=== PATIENT | male | born 1955 | race Two or more races ===

== ENCOUNTER 2018-09-12 20:32 | Emergency (ER) | payer OTHER ==
[~2018-09-12] VITALS: Ht 170.2 cm; Wt 83.0 kg
[2018-09-12 20:42] VITALS: BP 161/98
[2018-09-12 22:00] LABS: Basophils # (auto) 0 uL; Basophils % (auto) 0.3 % (0.0-2.0); Eosinophils # (auto) 0.1 uL; Eosinophils % (auto) 0.5 % (0.0-7.0); Hematocrit 45.2 % (41.0-53.0); Hemoglobin 15.4 g/dL (13.5-17.5); Lymphocytes # (auto) 2.6 uL; Lymphocytes % (auto) 17.1 % (10.0-50.0); Mean Corpuscular Hemoglobin 30.9 pg (28.0-32.0); Mean Corpuscular Hgb Conc. 34.1 g/dL (32.0-36.0); Mean Corpuscular Volume 90.5 fL (80.0-100.0); Monocytes # (auto) 1.2 uL; Monocytes % (auto) 8.1 % (0.0-12.0); Neutrophils # (auto) 11.1 uL; Platelet Count (auto) 360 10^3/uL (140-450); Red Cell Distribution Width 14.2 % (11.8-14.3)
[2018-09-12 22:16] LABS: Partial Thromboplastin Time 32.4 sec (23.78-33.04); Prothrombin Time 10.7 sec (9.27-12.13)
[2018-09-12 22:17] LABS: Chloride 101 mmol/L (98-107); Potassium 3.6 mmol/L (3.5-5.1); Sodium 138 mmol/L (136-145)
[2018-09-12 22:23] LABS: Alanine Aminotransferase 65 U/L (16-61); Albumin 4.1 g/dL (3.4-5.0); Anion Gap 12 (5-15); Aspartate Aminotransferase 50 U/L (15-37); BUN/Creatinine Ratio 6.8; Blood Urea Nitrogen 10 mg/dL (7-18); Calcium 9.7 mg/dL (8.5-10.1); Carbon Dioxide 25 mmol/L (21-32); GFR African American 63 mL/min; GFR Non-African American 52 mL/min; Glucose 162 mg/dL (74-106); Magnesium 2.1 mg/dL (1.6-2.6)
[2018-09-12 22:28] LABS: Alkaline Phosphatase 118 U/L (45-117); Bilirubin, Total 0.5 mg/dL (0.2-1.0)
== END 2018-09-13 02:30 | disposition left against medical advice (07) ==
LOC: ER 20:35
DX: R07.9 Chest pain, unspecified (principal); Z53.21 Procedure and treatment not carried out due to patient leaving prior to being seen by health care provider
CPT/HCPCS: 36415; 71046; 80053; 83735; 83880; 84443; 84484; 85025; 85610; 85730; 93005

== ENCOUNTER → 2018-09-24 | Outpatient (CLI) | payer OTHER | END | disposition home or self-care (01) | LOC: Rad HDHVI 14:58 | PROVIDERS: ATTEND Internal Medicine Cardiovascular Disease | DX: R42 Dizziness and giddiness (principal) | CPT/HCPCS: 93306 ==

== ENCOUNTER → 2018-09-29 | Outpatient (CLI) | payer OTHER ==
[~2018-09-29] VITALS: Ht 170.2 cm; Wt 83.5 kg
== END | disposition home or self-care (01) ==
LOC: Rad HDHVI 07:34
PROVIDERS: ATTEND Internal Medicine Cardiovascular Disease
DX: I25.10 Atherosclerotic heart disease of native coronary artery without angina pectoris (principal)
CPT/HCPCS: 78452; 93017; 96374; A9500

== ENCOUNTER → 2019-01-31 | Outpatient (CLI) | payer MEDICARE, OTHER ==
[~2019-01-31] MED LIST: ASPI-404 PO; ESOM40CA39 PO; TICA1TAB PO; TICA90TA PO
[2019-01-31 09:45] VITALS: BP 132/78
[2019-01-31 09:56] VITALS: BP 127/75
--- NOTE | 2019-01-31 09:56 | NUR ---
PRE-OP FOR LEFT HEART CATH FOR 02/03/19 Pre-Op Discharge Summary: See e-MAR for any medications given for this visit. Pre-op orders received and carried out per MD of EKG, LABS and chest xrays. Patient given a copy of EKG with instructions to go to [facility] out patient for further follow up care.
[2019-01-31 12:07] LABS: Basophils # (auto) 0.1 uL; Basophils % (auto) 0.7 % (0.0-2.0); Eosinophils # (auto) 0.2 uL; Hemoglobin 14.5 g/dL (13.5-17.5); Lymphocytes # (auto) 2.4 uL; Lymphocytes % (auto) 27.2 % (10.0-50.0); Mean Corpuscular Hgb Conc. 33.8 g/dL (32.0-36.0); Mean Corpuscular Volume 91.8 fL (80.0-100.0); Monocytes # (auto) 0.8 uL; Monocytes % (auto) 9.5 % (0.0-12.0); Neutrophils # (auto) 5.4 uL; Neutrophils % (auto) 60.6 % (37.0-80.0); Nucleated Red Blood Cells % 0.1 %; Platelet Count (auto) 309 10^3/uL (140-450); Red Blood Cells 4.69 10^6/uL (4.5-5.90); Red Cell Distribution Width 13.9 % (11.8-14.3); White Blood Cell 8.9 10^3/uL (4.4-10.8)
[2019-01-31 12:35] LABS: INR 0.94 (0.9-1.15); Partial Thromboplastin Time 31.7 sec (23.64-32.05)
[2019-01-31 13:43] LABS: Calcium 9.6 mg/dL (8.5-10.1); Potassium 4.3 mmol/L (3.5-5.1)
[2019-01-31 13:48] LABS: BUN/Creatinine Ratio 14.3
== END | disposition home or self-care (01) ==
LOC: Rad HDHVI 09:17
PROVIDERS: ATTEND Internal Medicine Cardiovascular Disease
DX: Z01.812 Encounter for preprocedural laboratory examination (principal); I70.0 Atherosclerosis of aorta; D64.9 Anemia, unspecified; R79.1 Abnormal coagulation profile; I10 Essential (primary) hypertension; I25.10 Atherosclerotic heart disease of native coronary artery without angina pectoris; R42 Dizziness and giddiness
CPT/HCPCS: 36415; 71046; 80048; 85025; 85610; 85730; 93005; G0463

== ENCOUNTER → 2019-04-26 | Outpatient (CLI) | payer MEDICARE, OTHER ==
[~2019-04-26] MED LIST changes: -TICA90TA PO
== END | disposition home or self-care (01) ==
LOC: Rad HDHVI 09:08
PROVIDERS: ATTEND Internal Medicine Cardiovascular Disease
DX: I25.118 Atherosclerotic heart disease of native coronary artery with other forms of angina pectoris (principal); R42 Dizziness and giddiness; I34.0 Nonrheumatic mitral (valve) insufficiency; I51.7 Cardiomegaly
CPT/HCPCS: 93306

== ENCOUNTER → 2019-06-20 | Outpatient (CLI) | payer MEDICARE, OTHER | END | disposition home or self-care (01) | LOC: Rad HDHVI 09:57 | PROVIDERS: ATTEND Internal Medicine Cardiovascular Disease | DX: I73.9 Peripheral vascular disease, unspecified (principal) | CPT/HCPCS: 93925; 93926 ==

== ENCOUNTER → 2019-06-22 | Outpatient (CLI) | payer MEDICARE, OTHER ==
[~2019-06-22] VITALS: Ht 170.2 cm; Wt 83.9 kg
== END | disposition home or self-care (01) ==
LOC: Rad HDHVI 08:57
PROVIDERS: ATTEND Internal Medicine Cardiovascular Disease
DX: R06.02 Shortness of breath (principal); I25.2 Old myocardial infarction; R07.9 Chest pain, unspecified; E78.00 Pure hypercholesterolemia, unspecified; I10 Essential (primary) hypertension; Z95.5 Presence of coronary angioplasty implant and graft
CPT/HCPCS: 78452; 93017; 96374; A9500

== ENCOUNTER → 2019-07-06 | Outpatient (CLI) | payer MEDICARE, OTHER | END | disposition home or self-care (01) | LOC: Rad HDHVI 10:48 | PROVIDERS: ATTEND Internal Medicine Cardiovascular Disease | DX: M51.27 Other intervertebral disc displacement, lumbosacral region (principal); M48.07 Spinal stenosis, lumbosacral region; M25.78 Osteophyte, vertebrae; M89.48 Other hypertrophic osteoarthropathy, other site | CPT/HCPCS: 72131 ==

== ENCOUNTER → 2019-07-08 | Outpatient (CLI) | payer MEDICARE, OTHER | END | disposition home or self-care (01) | LOC: Rad HDHVI 09:51 | PROVIDERS: ATTEND Internal Medicine Cardiovascular Disease | DX: I51.7 Cardiomegaly (principal); R42 Dizziness and giddiness; I25.10 Atherosclerotic heart disease of native coronary artery without angina pectoris | CPT/HCPCS: 93306 ==

== ENCOUNTER → 2019-08-22 | Outpatient (CLI) | payer MEDICARE, OTHER | END | disposition home or self-care (01) | LOC: LAB 11:12 | PROVIDERS: ATTEND Internal Medicine Cardiovascular Disease | DX: R94.4 Abnormal results of kidney function studies (principal) | CPT/HCPCS: 36415; 82565 ==

== ENCOUNTER → 2019-08-24 | Outpatient (CLI) | payer MEDICARE, OTHER ==
[~2019-08-24] MED LIST changes: +IOHEXOL 350 MG/ML 100ML IJ ONE
--- NOTE | 2019-08-24 10:30 | NUR ---
CHF PT AT THE [facility] FOR CTA OF THE HEAD AND NECK. PT C/O HEADACHES FOR 6 MONTHS AND PRESSURE. A/O X 4 0 DISTRESS VSS NO PAIN AT THIS TIME
--- NOTE | 2019-08-24 10:40 | NUR ---
IV insertion IV access obtained, via clean sterile technique by inserting 20 gauge catheter at LAC after 1 attempt(s). IV secured properly. No trauma to site. Patient tolerated procedure well.
--- NOTE | 2019-08-24 11:05 | NUR ---
IV removal IV DC'd with sterile technique, catheter fully intact. Pressure dressing applied to site. Patient tolerated procedure well. Discharged with aftercare instructions per MD. NOTE:
[2019-08-24 11:07] VITALS: BP 136/79
--- NOTE | 2019-08-24 11:07 | NUR ---
Discharge Instructions See e-MAR for any mediations given with this visit. Patient education given on disease process. Patient verbalized understanding. Previous labs reviewed. Patient discharged in stable condition with after care instructions and follow up appointment. PT TOLERATED PROCEDURE WELL BP STABLE
[2019-08-24 12:23] VITALS: BP 122/75
== END | disposition home or self-care (01) ==
LOC: Rad HDHVI 10:20
PROVIDERS: ATTEND Internal Medicine Cardiovascular Disease
DX: I65.23 Occlusion and stenosis of bilateral carotid arteries (principal)
CPT/HCPCS: 70496; G0463; Q9967

== ENCOUNTER → 2020-02-17 | Outpatient (CLI) | payer MEDICARE, OTHER ==
[~2020-02-17] MED LIST changes: -ASPI-404 PO; +ASPI-543 PO; +ATOR10TA52 PO; +CETI5TAB20 PO; +FLUT50SP31; -IOHEXOL 350 MG/ML 100ML IJ ONE; +METF-929 PO; +METO25TA36 PO
== END | disposition home or self-care (01) ==
LOC: Rad HDHVI 13:05
PROVIDERS: ATTEND Internal Medicine Cardiovascular Disease
DX: I10 Essential (primary) hypertension (principal)

== ENCOUNTER → 2020-03-12 | Outpatient (CLI) | payer MEDICARE, OTHER ==
[~2020-03-12] MED LIST changes: -ATOR10TA52 PO; -CETI5TAB20 PO; -FLUT50SP31; -METF-929 PO; -METO25TA36 PO
[2020-03-12 11:03] LABS: Basophils # (auto) 0.1 10 ^3/uL (0-0.2); Basophils % (auto) 0.8 % (0.0-2.0); Eosinophils # (auto) 0.3 10 ^3/uL (0-0.8); Eosinophils % (auto) 3.5 % (0.0-7.0); Hematocrit 41.2 % (41.0-53.0); Hemoglobin 14.3 g/dL (13.5-17.5); Lymphocytes # (auto) 2.6 10 ^3/uL (0.4-5.4); Lymphocytes % (auto) 27.6 % (10.0-50.0); Mean Corpuscular Hemoglobin 30.7 pg (28.0-32.0); Mean Corpuscular Hgb Conc. 34.7 g/dL (32.0-36.0); Mean Corpuscular Volume 88.4 fL (80.0-100.0); Monocytes # (auto) 0.8 10 ^3/uL (0-1.3); Monocytes % (auto) 8.5 % (0.0-12.0); Neutrophils # (auto) 5.6 10 ^3/uL (1.6-8.6); Neutrophils % (auto) 59.6 % (37.0-80.0); Platelet Count (auto) 316 10^3/uL (140-450); Red Blood Cells 4.66 10^6/uL (4.5-5.90); Red Cell Distribution Width 13.9 % (11.8-14.3); White Blood Cell 9.4 10^3/uL (4.4-10.8)
[2020-03-12 11:29] LABS: Urine Blood Negative /uL (Negative); Urine Specific Gravity 1.012 (1.001-1.035)
[2020-03-12 12:04] LABS: Chloride 105 mmol/L (98-107); Potassium 3.9 mmol/L (3.5-5.1); Sodium 136 mmol/L (136-145)
[2020-03-12 12:23] LABS: Alanine Aminotransferase 66 U/L (16-61); Albumin 3.5 g/dL (3.4-5.0); Alkaline Phosphatase 119 U/L (45-117); Anion Gap 8 (5-15); Aspartate Aminotransferase 36 U/L (15-37); BUN/Creatinine Ratio 10.1; Bilirubin, Direct 0.1 mg/dL (0-0.2); Bilirubin, Total 0.5 mg/dL (0.2-1.0); Blood Urea Nitrogen 11 mg/dL (7-18); Calcium 9.4 mg/dL (8.5-10.1); Carbon Dioxide 23 mmol/L (21-32); Cholesterol 269 mg/dL (< 200); GFR African American 87 mL/min; GFR Non-African American 72 mL/min; Glucose 186 mg/dL (74-106); HDL Cholesterol 31 mg/dL (40-59); Total Protein 8.1 g/dL (6.4-8.2); Triglycerides 439 mg/dL (< 150)
== END | disposition home or self-care (01) ==
LOC: LAB 10:38
PROVIDERS: ATTEND Internal Medicine Cardiovascular Disease
DX: C61 Malignant neoplasm of prostate (principal); E29.1 Testicular hypofunction; N39.0 Urinary tract infection, site not specified; D51.9 Vitamin B12 deficiency anemia, unspecified; K90.9 Intestinal malabsorption, unspecified; E03.9 Hypothyroidism, unspecified; Z00.00 Encounter for general adult medical examination without abnormal findings; Z79.899 Other long term (current) drug therapy
CPT/HCPCS: 36415; 80048; 80061; 80076; 81003; 82306; 83036; 84153; 84403; 84443; 85025

== ENCOUNTER → 2020-04-06 | Outpatient (CLI) | payer MEDICARE, OTHER ==
[~2020-04-06] MED LIST changes: +ATOR10TA52 PO; +CETI5TAB20 PO; +FLUT50SP31; +METF-929 PO; +METO25TA36 PO
[2020-04-06 09:15] VITALS: BP 127/80
--- NOTE | 2020-04-06 09:15 | NUR ---
PT ARRIVED TO CHF CLINIC PT ARRIVED TO CHF CLINIC FOR PRE-OP. PT ALERT AND AWAKE WITH EVEN AND UNLABORED RESPIRATIONS. PT IS ON ROOM AIR WITH NO S/S OF DISTRESS/SOB OR PAIN. WILL CARRY OUT MD ORDERS.
[2020-04-06 09:28] VITALS: BP 132/72
--- NOTE | 2020-04-06 09:28 | NUR ---
Pre-Op Discharge Summary: See e-MAR for any medications given for this visit. Pre-op orders received and carried out per MD of EKG, LABS and chest xrays. Patient given a copy of EKG with instructions to go to [facility] out patient for further follow up care. NOTES EKG PERFORMED BY ARCADIO KLINE, RESULTS REVIEWED AND DISCUSSED WITH PATIENT BY TAMIR BAE
[2020-04-06 11:56] LABS: Basophils # (auto) 0.1 10 ^3/uL (0-0.2); Basophils % (auto) 0.5 % (0.0-2.0); Eosinophils # (auto) 0.2 10 ^3/uL (0-0.8); Eosinophils % (auto) 2.1 % (0.0-7.0); Hematocrit 39.4 % (41.0-53.0); Hemoglobin 13.5 g/dL (13.5-17.5); Lymphocytes # (auto) 3.2 10 ^3/uL (0.4-5.4); Lymphocytes % (auto) 32.5 % (10.0-50.0); Mean Corpuscular Hemoglobin 30.8 pg (28.0-32.0); Mean Corpuscular Hgb Conc. 34.2 g/dL (32.0-36.0); Monocytes # (auto) 0.9 10 ^3/uL (0-1.3); Monocytes % (auto) 9.6 % (0.0-12.0); Neutrophils # (auto) 5.4 10 ^3/uL (1.6-8.6); Neutrophils % (auto) 55.3 % (37.0-80.0); Nucleated Red Blood Cells % 0.1 %; Platelet Count (auto) 348 10^3/uL (140-450); Red Blood Cells 4.38 10^6/uL (4.5-5.90); Red Cell Distribution Width 14.1 % (11.8-14.3); White Blood Cell 9.8 10^3/uL (4.4-10.8)
[2020-04-06 11:58] LABS: Potassium 3.7 mmol/L (3.5-5.1)
[2020-04-06 12:00] LABS: INR 1.03 (0.9-1.15); Partial Thromboplastin Time 34.6 sec (23.0-31.2)
[2020-04-06 12:08] LABS: Albumin 3.8 g/dL (3.4-5.0); Bilirubin, Total 0.4 mg/dL (0.2-1.0); Calcium 9.6 mg/dL (8.5-10.1); Total Protein 8.2 g/dL (6.4-8.2)
== END | disposition home or self-care (01) ==
LOC: Rad HDHVI 09:09
PROVIDERS: ATTEND Internal Medicine Cardiovascular Disease
DX: Z01.812 Encounter for preprocedural laboratory examination (principal); J98.11 Atelectasis; I70.0 Atherosclerosis of aorta; I10 Essential (primary) hypertension; E11.9 Type 2 diabetes mellitus without complications; R06.02 Shortness of breath; I73.9 Peripheral vascular disease, unspecified
CPT/HCPCS: 36415; 71046; 80053; 85025; 85610; 85730; 93005; G0463

== ENCOUNTER 2020-04-12 07:04 | Day surgery (SDC) | payer MEDICARE, OTHER ==
[~2020-04-12] VITALS: Ht 170.2 cm; Wt 82.1 kg
[2020-04-12] MEDS ORDERED: IOHEXOL 350 MG/ML 100ML IJ ONE ×2 (08:44→09:12)
[2020-04-12] MEDS ORDERED: LIDOCAINE 2%HCL (LOCAL ANESTH.) INJ 20ML MDV ONE (08:44)
[2020-04-12] MEDS ORDERED: ANGIOMAX 250 MG VIAL IV ONE (09:08)
[2020-04-12] MEDS ORDERED: fentaNYL CITRATE 100 MCG/2 ML VL ONE (09:08)
[2020-04-12] MEDS ORDERED: SODIUM CHL 0.9% 50 ML ONE (09:09)
[2020-04-12] MEDS ORDERED: MIDAZOLAM HCL 1MG/1ML-2 ML VIAL ONE (09:09)
[2020-04-12] MEDS ORDERED: ASPirin 81 mg TAB ONE (09:34)
[2020-04-12] MEDS ORDERED: TICAGRELOR 90 MG TAB ONE (09:34)
[2020-04-12] MEDS ORDERED: ACETAMINOPHEN 500 MG TAB PO PRN (10:00)
[2020-04-12] MEDS ORDERED: HYDROcodone-ACET 5/325MG TAB PO PRN (10:00)
[2020-04-12] MEDS ORDERED: ONDANSETRON HCL 4 MG/2 ML VIAL IV PRN (10:00)
== END 2020-04-12 12:16 | disposition home or self-care (01) ==
LOC: CATH 07:04
PROVIDERS: ATTEND Internal Medicine Cardiovascular Disease
DX: I70.211 Atherosclerosis of native arteries of extremities with intermittent claudication, right leg (principal); I11.9 Hypertensive heart disease without heart failure; I25.10 Atherosclerotic heart disease of native coronary artery without angina pectoris; E11.40 Type 2 diabetes mellitus with diabetic neuropathy, unspecified; H35.00 Unspecified background retinopathy; E11.319 Type 2 diabetes mellitus with unspecified diabetic retinopathy without macular edema; E11.8 Type 2 diabetes mellitus with unspecified complications; E78.00 Pure hypercholesterolemia, unspecified; Z88.0 Allergy status to penicillin; Z68.28 Body mass index [BMI] 28.0-28.9, adult; Z95.5 Presence of coronary angioplasty implant and graft; Z79.899 Other long term (current) drug therapy; Z20.828 Contact with and (suspected) exposure to other viral communicable diseases; Z98.890 Other specified postprocedural states
CPT/HCPCS: 37224; 75716; C1725; C1760; C1769; C1887; C1894; J0583; J1644; J2250; J3010; Q9967; U0003; 99152

== ENCOUNTER 2020-11-01 08:37 | Inpatient (IN) | payer MEDICARE, OTHER ==
[~2020-11-01] VITALS: Ht 170.2 cm; Wt 80.5 kg
[2020-11-01 09:30] LABS: Basophils # (auto) 0.1 10 ^3/uL (0-0.2); Basophils % (auto) 0.7 % (0.0-2.0); Eosinophils # (auto) 0 10 ^3/uL (0-0.8); Eosinophils % (auto) 0.1 % (0.0-7.0); Hematocrit 34.8 % (41.0-53.0); Hemoglobin 11.8 g/dL (13.5-17.5); Lymphocytes # (auto) 1.5 10 ^3/uL (0.4-5.4); Lymphocytes % (auto) 9.2 % (10.0-50.0); Mean Corpuscular Hemoglobin 31.4 pg (28.0-32.0); Mean Corpuscular Hgb Conc. 33.8 g/dL (32.0-36.0); Mean Corpuscular Volume 92.9 fL (80.0-100.0); Monocytes # (auto) 1.9 10 ^3/uL (0-1.3); Neutrophils # (auto) 12.7 10 ^3/uL (1.6-8.6); Platelet Count (auto) 261 10^3/uL (140-450); Red Blood Cells 3.75 10^6/uL (4.5-5.90); Red Cell Distribution Width 14.3 % (11.8-14.3); White Blood Cell 16.3 10^3/uL (4.4-10.8)
[2020-11-01 09:54] LABS: Potassium 3.6 mmol/L (3.5-5.1)
[2020-11-01 10:05] LABS: Albumin 3.5 g/dL (3.4-5.0); BUN/Creatinine Ratio 20.6; Bilirubin, Total 0.7 mg/dL (0.2-1.0); Calcium 8.7 mg/dL (8.5-10.1); Total Protein 7.5 g/dL (6.4-8.2)
[2020-11-01] MEDS ORDERED: cefTRIAXone 1GM/50ML D5W 50 ML IV ONE (10:15)
[2020-11-01] MEDS ORDERED: AZITHROMYCIN 500MG/ 250ML 250 ML IV ONE (10:15)
[2020-11-01] MEDS ORDERED: FUROSEMIDE 40 MG/4 ML VIAL IV ONE (10:30)
[2020-11-01] MEDS ORDERED: ASPirin 81 mg TAB PO ONE (10:30)
[2020-11-01] MEDS ORDERED: ENOXAPARIN SOD 80 MG/0.8ML SYRINGE SC ONE (10:30)
[2020-11-01] MEDS ORDERED: CLOPIDOGREL BISULFATE 75 MG TAB PO ONE (10:45)
[2020-11-01 11:33] LABS: INR 1.09 (0.9-1.15)
[2020-11-01 11:33] LABS: CRP High Sensitivity 10.2 mg/dL (< 0.3)
[2020-11-01] MEDS ORDERED: LIDOCAINE 2%HCL (LOCAL ANESTH.) INJ 20ML MDV ONE (12:32)
[2020-11-01] MEDS ORDERED: MIDAZOLAM HCL 1MG/1ML-2 ML VIAL ONE (12:32)
[2020-11-01] MEDS ORDERED: ANGIOMAX 250 MG VIAL IV ONE (12:32)
[2020-11-01] MEDS ORDERED: fentaNYL CITRATE 100 MCG/2 ML VL ONE (12:32)
[2020-11-01] MEDS ORDERED: IOHEXOL 350 MG/ML 100ML IJ ONE (12:56)
[2020-11-01] MEDS ORDERED: NITROGLYCERIN 0.4 MG SL TAB SL PRN (13:45)
[2020-11-01] MEDS ORDERED: ACETAMINOPHEN 500 MG TAB PO PRN (13:45)
[2020-11-01] MEDS ORDERED: MORPHINE SULF INJ 2 MG/ML SYRINGE 1ML IV PRN (13:45)
[2020-11-01] MEDS ORDERED: ONDANSETRON HCL 4 MG/2 ML VIAL IV PRN (13:45)
[2020-11-01] MEDS: HYDROcodone-ACET 5/325MG TAB PO PRN ×2 (14:31→19:48)
[2020-11-01] MEDS ORDERED: DEXTROSE (50%) 50ML SYRG IV PRN (14:45)
[2020-11-01 17:00] VITALS: BP 93/59
[2020-11-01] MEDS: InsuLIN REG 1unit/0.01ml Soln (100units/ml) SC SCH ×2 (17:00→22:00)
[2020-11-01] MEDS: ACCU-CHEK COMFORT CURVE STRIP VI SCH ×2 (18:02→22:21)
[2020-11-01] MEDS ORDERED: ICOS1CAP OR (18:12)
[2020-11-01 22:00] VITALS: BP 105/60
[2020-11-01] MEDS: FLUTICASONE PROP NASAL SPR 0.05 % (50MCG) 16GM SCH (22:00)
[2020-11-01] MEDS: ATORVASTATIN 20 MG TAB PO SCH (22:21)
[2020-11-01] MEDS: ENOXAPARIN SOD 80 MG/0.8ML SYRINGE SC SCH (22:21)
[2020-11-02] MEDS: HYDROcodone-ACET 5/325MG TAB PO PRN ×6 (01:30→23:04)
[2020-11-02 05:00] VITALS: BP 103/62
[2020-11-02] MEDS: ACCU-CHEK COMFORT CURVE STRIP VI SCH ×4 (06:31→21:32)
[2020-11-02] MEDS: InsuLIN REG 1unit/0.01ml Soln (100units/ml) SC SCH ×4 (06:31→21:31)
[2020-11-02 09:00] VITALS: BP 92/64
[2020-11-02] MEDS: PANTOPRAZOLE 40 MG TAB PO SCH (09:11)
[2020-11-02] MEDS: ASPirin-EC 81 mg tab PO SCH (09:11)
[2020-11-02] MEDS: METOPROLOL SUCCINATE XL 50 MG TAB PO SCH (09:12)
[2020-11-02] MEDS: ENOXAPARIN SOD 80 MG/0.8ML SYRINGE SC SCH ×2 (09:12→21:32)
[2020-11-02] MEDS: FLUTICASONE PROP NASAL SPR 0.05 % (50MCG) 16GM SCH ×2 (10:00→21:31)
[2020-11-02] MEDS: LORATADINE 10 MG TAB PO SCH (11:35)
[2020-11-02 13:00] VITALS: BP 98/64
[2020-11-02 17:00] VITALS: BP 96/60
[2020-11-02] MEDS: MAGNESIUM SULFATE 1GM/100ML 100 ML IV SCH ×4 (18:39→22:52)
[2020-11-02 20:29] LABS: BUN/Creatinine Ratio 15.5; Calcium 8.4 mg/dL (8.5-10.1); Magnesium 2.1 mg/dL (1.6-2.6); Potassium 3.6 mmol/L (3.5-5.1)
[2020-11-02] MEDS: ATORVASTATIN 20 MG TAB PO SCH (21:32)
[2020-11-02 22:00] VITALS: BP 108/66
[2020-11-03] MEDS: HYDROcodone-ACET 5/325MG TAB PO PRN ×3 (03:27→22:03)
[2020-11-03 05:00] VITALS: BP 102/59
[2020-11-03] MEDS: InsuLIN REG 1unit/0.01ml Soln (100units/ml) SC SCH ×4 (06:25→22:00)
[2020-11-03] MEDS: ACCU-CHEK COMFORT CURVE STRIP VI SCH ×4 (06:26→22:03)
[2020-11-03] MEDS: FLUTICASONE PROP NASAL SPR 0.05 % (50MCG) 16GM SCH ×2 (08:13→22:00)
[2020-11-03] MEDS: PANTOPRAZOLE 40 MG TAB PO SCH (08:14)
[2020-11-03] MEDS: ASPirin-EC 81 mg tab PO SCH (08:14)
[2020-11-03] MEDS: LORATADINE 10 MG TAB PO SCH (08:14)
[2020-11-03] MEDS: METOPROLOL SUCCINATE XL 50 MG TAB PO SCH (08:15)
[2020-11-03] MEDS: ENOXAPARIN SOD 80 MG/0.8ML SYRINGE SC SCH ×2 (08:16→22:03)
[2020-11-03 09:00] VITALS: BP 135/68
[2020-11-03] MEDS ORDERED: LACTULOSE 20Gm/30ML SOLN PO PRN (09:15)
[2020-11-03 13:00] VITALS: BP 111/72
[2020-11-03 16:40] VITALS: BP 105/64
[2020-11-03 22:00] VITALS: BP 104/65
[2020-11-03] MEDS: ATORVASTATIN 20 MG TAB PO SCH (22:02)
[2020-11-04] MEDS: HYDROcodone-ACET 5/325MG TAB PO PRN ×4 (04:04→21:13)
[2020-11-04 05:00] VITALS: BP 104/66
[2020-11-04] MEDS: InsuLIN REG 1unit/0.01ml Soln (100units/ml) SC SCH ×4 (06:35→22:00)
[2020-11-04] MEDS: ACCU-CHEK COMFORT CURVE STRIP VI SCH ×4 (06:35→22:19)
[2020-11-04] MEDS: METOPROLOL SUCCINATE XL 50 MG TAB PO SCH (08:49)
[2020-11-04] MEDS: ASPirin-EC 81 mg tab PO SCH (08:49)
[2020-11-04] MEDS: LORATADINE 10 MG TAB PO SCH (08:49)
[2020-11-04] MEDS: PANTOPRAZOLE 40 MG TAB PO SCH (08:49)
[2020-11-04] MEDS: ENOXAPARIN SOD 80 MG/0.8ML SYRINGE SC SCH ×2 (08:50→22:19)
[2020-11-04 09:00] VITALS: BP 103/97
[2020-11-04] MEDS: FLUTICASONE PROP NASAL SPR 0.05 % (50MCG) 16GM SCH ×2 (10:00→22:00)
[2020-11-04 13:00] VITALS: BP 106/69
[2020-11-04 16:53] VITALS: BP 119/72
[2020-11-04 22:00] VITALS: BP 112/66
[2020-11-04] MEDS: ATORVASTATIN 20 MG TAB PO SCH (22:19)
[2020-11-05] MEDS: HYDROcodone-ACET 5/325MG TAB PO PRN ×4 (01:48→19:40)
[2020-11-05 05:00] VITALS: BP 105/66
[2020-11-05] MEDS: ACCU-CHEK COMFORT CURVE STRIP VI SCH ×4 (06:13→22:11)
[2020-11-05] MEDS: InsuLIN REG 1unit/0.01ml Soln (100units/ml) SC SCH ×4 (06:13→22:00)
[2020-11-05] MEDS: PANTOPRAZOLE 40 MG TAB PO SCH (08:00)
[2020-11-05] MEDS: ASPirin-EC 81 mg tab PO SCH (08:00)
[2020-11-05] MEDS: LORATADINE 10 MG TAB PO SCH (08:00)
[2020-11-05] MEDS: METOPROLOL SUCCINATE XL 50 MG TAB PO SCH (08:03)
[2020-11-05] MEDS: ENOXAPARIN SOD 80 MG/0.8ML SYRINGE SC SCH ×2 (08:04→22:11)
[2020-11-05 09:00] VITALS: BP 126/73
[2020-11-05] MEDS: FLUTICASONE PROP NASAL SPR 0.05 % (50MCG) 16GM SCH ×2 (11:11→22:10)
[2020-11-05 13:00] VITALS: BP 116/68
[2020-11-05 17:00] VITALS: BP 108/62
[2020-11-05 22:00] VITALS: BP 113/65
[2020-11-05] MEDS: ATORVASTATIN 20 MG TAB PO SCH (22:10)
[2020-11-05 23:51] VITALS: BP 113/65
[2020-11-06] MEDS: HYDROcodone-ACET 5/325MG TAB PO PRN (00:21)
== END 2020-11-06 03:10 | disposition short-term general hospital (02) | DRG 280 ==
LOC: ER 08:37 → EDSEX 08:37 → EDUNIT# 08:37 → EDBD 08:37 → TELE 13:41 → TELE-WESTW 16:59
PROVIDERS: ADMIT Internal Medicine Cardiovascular Disease; ATTEND Internal Medicine Cardiovascular Disease
PROC: B2111ZZ Fluoroscopy of Multiple Coronary Arteries using Low Osmolar Contrast (ICD-10-PCS; principal; 2020-11-01)
PROC: 4A023N7 Measurement of Cardiac Sampling and Pressure, Left Heart, Percutaneous Approach (ICD-10-PCS; 2020-11-01)
PROC: B3151ZZ Fluoroscopy of Bilateral Common Carotid Arteries using Low Osmolar Contrast (ICD-10-PCS; 2020-11-01)
PROC: B2151ZZ Fluoroscopy of Left Heart using Low Osmolar Contrast (ICD-10-PCS; 2020-11-01)
PROC: B31C1ZZ Fluoroscopy of Bilateral External Carotid Arteries using Low Osmolar Contrast (ICD-10-PCS; 2020-11-01)
PROC: B3181ZZ Fluoroscopy of Bilateral Internal Carotid Arteries using Low Osmolar Contrast (ICD-10-PCS; 2020-11-01)
DX: I21.4 Non-ST elevation (NSTEMI) myocardial infarction (principal); I50.23 Acute on chronic systolic (congestive) heart failure; I11.0 Hypertensive heart disease with heart failure; Z95.1 Presence of aortocoronary bypass graft; I25.10 Atherosclerotic heart disease of native coronary artery without angina pectoris; E78.5 Hyperlipidemia, unspecified; I25.5 Ischemic cardiomyopathy; F17.210 Nicotine dependence, cigarettes, uncomplicated; E11.40 Type 2 diabetes mellitus with diabetic neuropathy, unspecified; Z20.822 Contact with and (suspected) exposure to COVID-19; I25.2 Old myocardial infarction; Z79.02 Long term (current) use of antithrombotics/antiplatelets; Z82.49 Family history of ischemic heart disease and other diseases of the circulatory system; Z98.61 Coronary angioplasty status; Z88.8 Allergy status to other drugs, medicaments and biological substances
CPT/HCPCS: 36415; 71045; 80048; 80053; 82728; 82962; 83615; 83735; 83880; 84484; 85025; 85610; 86141; 87426; 93005; 96365; 96372; 96375; 99152; 99291; G0378; J0696; J1815; J2250

== ENCOUNTER → 2020-11-26 | Outpatient (CLI) | payer MEDICARE, OTHER ==
[~2020-11-26] MED LIST changes: +ICOS1CAP OR
== END | disposition home or self-care (01) ==
LOC: Rad HDHVI 14:04
PROVIDERS: ATTEND Internal Medicine Cardiovascular Disease
DX: R06.02 Shortness of breath (principal); R42 Dizziness and giddiness
CPT/HCPCS: 93306

== ENCOUNTER → 2021-04-15 | Outpatient (CLI) | payer MEDICARE, OTHER ==
[~2021-04-15] MED LIST changes: -CETI5TAB20 PO; +CETI5TAB6 PO
[2021-04-15 15:46] LABS: Urine Blood Negative /uL (Negative); Urine Specific Gravity 1.026 (1.001-1.035)
[2021-04-15 15:49] LABS: Basophils # (auto) 0 10 ^3/uL (0-0.2); Basophils % (auto) 0.5 % (0.0-2.0); Eosinophils # (auto) 0.2 10 ^3/uL (0-0.8); Eosinophils % (auto) 2.9 % (0.0-7.0); Hematocrit 35.5 % (41.0-53.0); Lymphocytes # (auto) 2.4 10 ^3/uL (0.4-5.4); Lymphocytes % (auto) 27.8 % (10.0-50.0); Mean Corpuscular Hemoglobin 30.1 pg (28.0-32.0); Mean Corpuscular Hgb Conc. 33.8 g/dL (32.0-36.0); Monocytes # (auto) 0.8 10 ^3/uL (0-1.3); Monocytes % (auto) 9.3 % (0.0-12.0); Neutrophils % (auto) 59.5 % (37.0-80.0); Nucleated Red Blood Cells % 0.1 %; Red Blood Cells 3.99 10^6/uL (4.5-5.90); Red Cell Distribution Width 14.6 % (11.8-14.3); White Blood Cell 8.5 10^3/uL (4.4-10.8)
[2021-04-15 15:55] LABS: Albumin 3.6 g/dL (3.4-5.0); Calcium 9.2 mg/dL (8.5-10.1); Potassium 4.2 mmol/L (3.5-5.1)
[2021-04-15 15:58] LABS: BUN/Creatinine Ratio 15.7; Bilirubin, Total 0.4 mg/dL (0.2-1.0); INR 1.07 (0.9-1.15); Partial Thromboplastin Time 32.2 sec (23.6-33.0); Total Protein 7.9 g/dL (6.4-8.2)
== END | disposition home or self-care (01) ==
LOC: LAB 13:24
PROVIDERS: ATTEND Internal Medicine Cardiovascular Disease
DX: Z01.812 Encounter for preprocedural laboratory examination (principal)
CPT/HCPCS: 36415; 80053; 81003; 85025; 85610; 85730

== ENCOUNTER → 2021-08-26 | Outpatient (CLI) | payer MEDICARE, OTHER ==
[2021-08-26 15:52] LABS: Basophils # (auto) 0.1 10 ^3/uL (0-0.2); Basophils % (auto) 1.7 % (0.0-2.0); Eosinophils # (auto) 0.2 10 ^3/uL (0-0.8); Eosinophils % (auto) 2.2 % (0.0-7.0); Hematocrit 35.2 % (41.0-53.0); Hemoglobin 12.3 g/dL (13.5-17.5); Lymphocytes # (auto) 2.2 10 ^3/uL (0.4-5.4); Lymphocytes % (auto) 29.3 % (10.0-50.0); Mean Corpuscular Hemoglobin 30.5 pg (28.0-32.0); Mean Corpuscular Volume 87.3 fL (80.0-100.0); Monocytes # (auto) 0.7 10 ^3/uL (0-1.3); Neutrophils # (auto) 4.3 10 ^3/uL (1.6-8.6); Neutrophils % (auto) 57.8 % (37.0-80.0); Nucleated Red Blood Cells % 0.1 %; Red Blood Cells 4.03 10^6/uL (4.5-5.90); Red Cell Distribution Width 14.5 % (11.8-14.3); White Blood Cell 7.5 10^3/uL (4.4-10.8)
[2021-08-26 15:53] LABS: Urine Blood TRACE /uL (Negative); Urine Specific Gravity 1.023 (1.001-1.035)
[2021-08-26 15:57] LABS: Alanine Aminotransferase 27 U/L (16-61); Albumin 3.7 g/dL (3.4-5.0); Anion Gap 5 (5-15); Aspartate Aminotransferase 17 U/L (15-37); Blood Urea Nitrogen 19 mg/dL (7-18); Carbon Dioxide 28 mmol/L (21-32); Chloride 105 mmol/L (98-107); GFR African American 62 mL/min; GFR Non-African American 51 mL/min; Glucose 145 mg/dL (74-106); Potassium 4.7 mmol/L (3.5-5.1); Sodium 138 mmol/L (136-145)
[2021-08-26 16:01] LABS: Alkaline Phosphatase 54 U/L (45-117); Bilirubin, Total 0.3 mg/dL (0.2-1.0); Cholesterol 240 mg/dL (< 200); HDL Cholesterol 32 mg/dL (40-59); Triglycerides 418 mg/dL (< 150)
[2021-08-26 16:13] LABS: Free T4 (Free Thyroxine) 1.01 ng/dL (0.89-1.76)
[2021-08-26 16:14] LABS: Prostate Specific Antigen 0.3 ng/mL (0.0-4.0)
== END | disposition home or self-care (01) ==
LOC: LAB 13:42
PROVIDERS: ATTEND Internal Medicine Cardiovascular Disease
DX: I10 Essential (primary) hypertension (principal); D51.3 Other dietary vitamin B12 deficiency anemia; E11.9 Type 2 diabetes mellitus without complications; D64.9 Anemia, unspecified; E55.9 Vitamin D deficiency, unspecified; R00.2 Palpitations; R53.1 Weakness; R30.0 Dysuria; C61 Malignant neoplasm of prostate
CPT/HCPCS: 36415; 80053; 80061; 81003; 82306; 82607; 83036; 84153; 84403; 84439; 84443; 85025; 87086

== ENCOUNTER 2021-12-01 12:18 | Emergency (ER) | payer MEDICARE, OTHER | END 2021-12-01 12:24 | disposition left against medical advice (07) | LOC: ER 12:18 | DX: S61.219A Laceration without foreign body of unspecified finger without damage to nail, initial encounter (principal); Z53.21 Procedure and treatment not carried out due to patient leaving prior to being seen by health care provider; X58.XXXA Exposure to other specified factors, initial encounter; Y93.9 Activity, unspecified; Y92.9 Unspecified place or not applicable; Y99.9 Unspecified external cause status ==

== ENCOUNTER → 2022-03-20 | Outpatient (CLI) | payer MEDICARE, OTHER | END | disposition home or self-care (01) | LOC: Rad HDHVI 13:04 | PROVIDERS: ATTEND Internal Medicine Cardiovascular Disease | DX: I34.0 Nonrheumatic mitral (valve) insufficiency (principal); R00.2 Palpitations; R42 Dizziness and giddiness | CPT/HCPCS: 93306 ==

== ENCOUNTER → 2022-03-25 | Outpatient (CLI) | payer MEDICARE, OTHER ==
[~2022-03-25] VITALS: Ht 170.2 cm; Wt 88.5 kg
== END | disposition home or self-care (01) ==
LOC: Rad HDHVI 12:57
PROVIDERS: ATTEND Internal Medicine Cardiovascular Disease
DX: I12.9 Hypertensive chronic kidney disease with stage 1 through stage 4 chronic kidney disease, or unspecified chronic kidney disease (principal); E11.22 Type 2 diabetes mellitus with diabetic chronic kidney disease; N18.2 Chronic kidney disease, stage 2 (mild); E78.5 Hyperlipidemia, unspecified; E11.9 Type 2 diabetes mellitus without complications; I25.2 Old myocardial infarction; I25.10 Atherosclerotic heart disease of native coronary artery without angina pectoris; E11.40 Type 2 diabetes mellitus with diabetic neuropathy, unspecified; E11.21 Type 2 diabetes mellitus with diabetic nephropathy; E11.59 Type 2 diabetes mellitus with other circulatory complications; R42 Dizziness and giddiness; R06.02 Shortness of breath; Z82.49 Family history of ischemic heart disease and other diseases of the circulatory system; Z95.0 Presence of cardiac pacemaker; Z95.2 Presence of prosthetic heart valve
CPT/HCPCS: 78452; 93017; 96374; A9500

== ENCOUNTER → 2022-04-14 | Outpatient (CLI) | payer MEDICARE, OTHER ==
[2022-04-14 11:54] LABS: Calcium 9.4 mg/dL (8.5-10.1); Potassium 4.3 mmol/L (3.5-5.1)
== END | disposition home or self-care (01) ==
LOC: LAB 10:54
PROVIDERS: ATTEND Internal Medicine Cardiovascular Disease
DX: E11.40 Type 2 diabetes mellitus with diabetic neuropathy, unspecified (principal)
CPT/HCPCS: 36415; 80048; 83036

== ENCOUNTER 2022-10-27 08:13 | Inpatient (IN) | payer MEDICARE, OTHER ==
[2022-10-23 13:41] LABS: Basophils # (auto) 0.1 10 ^3/uL (0-0.2); Basophils % (auto) 0.8 % (0.0-2.0); Eosinophils # (auto) 0.2 10 ^3/uL (0-0.8); Eosinophils % (auto) 2.5 % (0.0-7.0); Hematocrit 36.1 % (41.0-53.0); Hemoglobin 11.9 g/dL (13.5-17.5); Lymphocytes # (auto) 2.3 10 ^3/uL (0.4-5.4); Lymphocytes % (auto) 36.8 % (10.0-50.0); Mean Corpuscular Hemoglobin 29.1 pg (28.0-32.0); Mean Corpuscular Hgb Conc. 33.1 g/dL (32.0-36.0); Monocytes # (auto) 0.6 10 ^3/uL (0-1.3); Monocytes % (auto) 9.1 % (0.0-12.0); Neutrophils # (auto) 3.2 10 ^3/uL (1.6-8.6); Neutrophils % (auto) 50.8 % (37.0-80.0); Nucleated Red Blood Cells % 0.1 %; Red Cell Distribution Width 14.2 % (11.8-14.3); White Blood Cell 6.4 10^3/uL (4.4-10.8)
[2022-10-23 13:42] LABS: Urine Bacteria NONE SEEN /hpf (None Seen); Urine Blood Negative /uL (Negative); Urine Specific Gravity 1.017 (1.001-1.035); Urine WBC 13 /hpf (0 - 3)
[2022-10-23 13:56] LABS: Partial Thromboplastin Time 34.4 sec (24.6-33.4)
[2022-10-23 14:20] LABS: Albumin 3.7 g/dL (3.4-5.0); Calcium 9.5 mg/dL (8.5-10.1); Potassium 4.4 mmol/L (3.5-5.1)
[2022-10-23 14:23] LABS: BUN/Creatinine Ratio 15.3 (10.0-20.0); Bilirubin, Total 0.2 mg/dL (0.2-1.0); Total Protein 7.9 g/dL (6.4-8.2)
[2022-10-27] VITALS (7 sets, daily range): BP systolic 64–109; BP diastolic 39–64
[~2022-10-27] VITALS: Ht 170.2 cm; Wt 96.3 kg
[~2022-10-27 08:13] MED LIST changes: +CHOL500014 PO; +CLOP75TA28 PO; +DIVA1TAB38 PO; +DIVA500T2 PO; +HYDR-4072 PO; +SACU1TAB PO; -TICA1TAB PO; +TURMPOW XX
[2022-10-27] MEDS ORDERED: ceFAZolin 1GM/50ML 100 ML IV ONE (08:26)
[2022-10-27] MEDS ORDERED: CELECOXIB 100 MG CAP PO ONE (08:30)
[2022-10-27] MEDS ORDERED: PREGABALIN CAPSULE 75 MG CAP PO ONE (08:30)
[2022-10-27] MEDS ORDERED: ACETAMINOPHEN IV 1000 MG/100ML (10MG/ML) IV ONE (08:30)
[2022-10-27] MEDS ORDERED: MORPHINE SULF PF 5 MG/10 ML VIAL ONE (09:17)
[2022-10-27] MEDS ORDERED: fentaNYL CITRATE 100 MCG/2 ML VL ONE (09:17)
[2022-10-27] MEDS ORDERED: MIDAZOLAM HCL 2MG/2ML 2ml VIAL (1mg/ml) ONE ×2 (09:18→10:51)
[2022-10-27] MEDS ORDERED: PROPOFOL 10 MG/ML 20 ML IV ONE ×2 (09:18→12:11)
[2022-10-27] MEDS ORDERED: SODIUM CHLORIDE LOCK 10 ML ONE (09:18)
[2022-10-27] MEDS ORDERED: DexAMETHasone SOD PHOS 10MG/1ML VIAL INJ ONE (09:18)
[2022-10-27] MEDS ORDERED: ONDANSETRON HCL 4 MG/2 ML VIAL ONE (09:18)
[2022-10-27] MEDS ORDERED: VANCOMYCIN HCL 1000 MG VL ONE (09:48)
[2022-10-27] MEDS ORDERED: BUPIVACAINE W/ EPINEPH 0.25% INJ 50ML MDV ONE (09:58)
[2022-10-27] MEDS ORDERED: KETOROLAC TROMETH 30 MG/ML 1ML VIAL ONE (10:01)
[2022-10-27] MEDS ORDERED: TETRACAINE 1% INJ 2 ML VIAL IJ ONE (10:14)
[2022-10-27] MEDS ORDERED: ACCU-CHEK COMFORT CURVE STRIP VI ONE (10:15)
[2022-10-27] MEDS ORDERED: HYDROmorphone HCL 2 MG/ML VL/or syr IV PRN ×3 (10:15→12:45)
[2022-10-27] MEDS ORDERED: METOCLOPRAMIDE HCL 5MG/ml INJ 2ml VIAL IV PRN (10:15)
[2022-10-27] MEDS ORDERED: MORPHINE SULFATE INJ 2 MG/ml SYRG IV PRN ×2 (10:15→12:45)
[2022-10-27] MEDS: TRANEXAMIC ACID 20 ML ONE ×2 (10:50→11:00)
[2022-10-27] MEDS ORDERED: diphenhdrAMINE HCL 50 MG/1 ML VL IV PRN (12:30)
[2022-10-27] MEDS ORDERED: NALOXONE HCL 0.4 MG/ML VIAL IV PRN (12:30)
[2022-10-27] MEDS ORDERED: NITROGLYCERIN 0.4 MG SL TAB SL PRN (12:45)
[2022-10-27] MEDS ORDERED: BISACODYL 5 MG EC TAB PO PRN (12:45)
[2022-10-27] MEDS ORDERED: DEXTROSE (50%) 50ML SYRG IV PRN ×2 (12:45→15:30)
[2022-10-27] MEDS ORDERED: LACTATED RINGER'S 1,000 ML IV SCH (12:45)
[2022-10-27] MEDS ORDERED: ONDANSETRON HCL 4 MG/2 ML VIAL IV PRN (12:45)
[2022-10-27] MEDS ORDERED: ACETAMINOPHEN 325 MG TAB PO PRN (12:45)
[2022-10-27] MEDS: ceFAZolin 1GM/50ML 50 ML IV SCH ×2 (14:26→20:58)
[2022-10-27] MEDS ORDERED: InsuLIN REG 1unit/0.01ml Soln (100units/ml) SC SCH ×2 (17:00→22:00)
[2022-10-27] MEDS ORDERED: ACCU-CHEK COMFORT CURVE STRIP VI SCH (17:00)
[2022-10-27] MEDS ORDERED: SODIUM CHLORIDE 0.9% 1,000 ML IV ONE (20:15)
[2022-10-27] MEDS: LACTATED RINGER'S 1,000 ML IV SCH (20:17)
[2022-10-27] MEDS: ATORVASTATIN 20 MG TAB PO SCH (20:57)
[2022-10-27] MEDS: SACUBITRIL-VALSARTAN 24mg/26mg TAB PO SCH (21:54)
[2022-10-27] MEDS: DOCUSATE SOD 100 MG CAP PO SCH (21:54)
[2022-10-27] MEDS: CETIRIZINE HCL 5 MG PO SCH (21:58)
[2022-10-27] MEDS: SODIUM CHLOR 0.9% PF (SALINE LOCK) 10ML VIAL/SYR IV SCH ×2 (22:00→22:01)
[2022-10-28] VITALS (21 sets, daily range): BP systolic 89–130; BP diastolic 47–73
[2022-10-28] MEDS: ACCU-CHEK COMFORT CURVE STRIP VI SCH ×5 (01:39→17:21)
[2022-10-28] MEDS: ceFAZolin 1GM/50ML 50 ML IV SCH (01:54)
[2022-10-28] MEDS: InsuLIN REG 1unit/0.01ml Soln (100units/ml) SC SCH ×4 (06:00→17:32)
[2022-10-28 06:05] LABS: Basophils # (auto) 0.1 10 ^3/uL (0-0.2); Basophils % (auto) 0.6 % (0.0-2.0); Eosinophils # (auto) 0.1 10 ^3/uL (0-0.8); Eosinophils % (auto) 0.6 % (0.0-7.0); Hematocrit 26.2 % (41.0-53.0); Lymphocytes # (auto) 1.8 10 ^3/uL (0.4-5.4); Lymphocytes % (auto) 18.2 % (10.0-50.0); Mean Corpuscular Hemoglobin 30.6 pg (28.0-32.0); Mean Corpuscular Hgb Conc. 34.3 g/dL (32.0-36.0); Mean Corpuscular Volume 89.4 fL (80.0-100.0); Monocytes # (auto) 1.2 10 ^3/uL (0-1.3); Monocytes % (auto) 12.8 % (0.0-12.0); Neutrophils # (auto) 6.6 10 ^3/uL (1.6-8.6); Neutrophils % (auto) 67.8 % (37.0-80.0); Nucleated Red Blood Cells % 0.1 %; Red Blood Cells 2.93 10^6/uL (4.5-5.90); Red Cell Distribution Width 13.9 % (11.8-14.3); White Blood Cell 9.7 10^3/uL (4.4-10.8)
[2022-10-28 06:24] LABS: Potassium 4.8 mmol/L (3.5-5.1)
[2022-10-28] MEDS: SODIUM CHLOR 0.9% PF (SALINE LOCK) 10ML VIAL/SYR IV SCH ×3 (06:30→22:00)
[2022-10-28] MEDS: PANTOPRAZOLE 40 MG TAB PO SCH (06:31)
[2022-10-28] MEDS: METOPROLOL SUCCINATE XL 50 MG TAB PO SCH (06:32)
[2022-10-28 06:36] LABS: Bilirubin, Total 0.3 mg/dL (0.2-1.0); Calcium 8.4 mg/dL (8.5-10.1); Total Protein 6.3 g/dL (6.4-8.2)
[2022-10-28] MEDS: LACTATED RINGER'S 1,000 ML IV SCH (08:10)
[2022-10-28] MEDS: CETIRIZINE HCL 5 MG PO SCH ×2 (09:07→21:48)
[2022-10-28] MEDS: DOCUSATE SOD 100 MG CAP PO SCH ×2 (09:07→21:45)
[2022-10-28] MEDS: CHOLECALCIFEROL (VITD3) 2,000 UNIT CAP/TAB PO SCH (09:09)
[2022-10-28] MEDS: CLOPIDOGREL BISULFATE 75 MG TAB PO SCH (09:09)
[2022-10-28] MEDS: SACUBITRIL-VALSARTAN 24mg/26mg TAB PO SCH (09:10)
[2022-10-28] MEDS: OXYCODONE W/ ACETAMINOPHEN 5/325MG TABLET PO PRN ×2 (09:30→14:26)
[2022-10-28] MEDS ORDERED: TAMSULOSIN HYDROCHLORIDE 0.4 MG CAP PO ONE (12:30)
[2022-10-28] MEDS: ATORVASTATIN 20 MG TAB PO SCH (17:20)
[2022-10-28] MEDS: TAMSULOSIN HYDROCHLORIDE 0.4 MG CAP PO SCH (17:20)
[2022-10-28] MEDS: HYDROmorphone HCL 2 MG/ML VL/or syr IV PRN ×2 (17:21→23:00)
[2022-10-29] MEDS: ACCU-CHEK COMFORT CURVE STRIP VI SCH ×5 (00:25→23:21)
[2022-10-29] MEDS: InsuLIN REG 1unit/0.01ml Soln (100units/ml) SC SCH ×5 (00:34→23:21)
[2022-10-29] MEDS: LACTATED RINGER'S 1,000 ML IV SCH (00:50)
[2022-10-29] MEDS: HYDROmorphone HCL 2 MG/ML VL/or syr IV PRN ×5 (03:38→22:31)
[2022-10-29 05:00] VITALS: BP 118/61
[2022-10-29] MEDS: SODIUM CHLOR 0.9% PF (SALINE LOCK) 10ML VIAL/SYR IV SCH ×3 (06:00→22:43)
[2022-10-29 06:11] LABS: Potassium 5.1 mmol/L (3.5-5.1)
[2022-10-29 06:15] LABS: BUN/Creatinine Ratio 14.4 (10.0-20.0); Calcium 8.8 mg/dL (8.5-10.1)
[2022-10-29] MEDS: PANTOPRAZOLE 40 MG TAB PO SCH (06:26)
[2022-10-29] MEDS: METOPROLOL SUCCINATE XL 50 MG TAB PO SCH (06:28)
[2022-10-29 06:32] LABS: Basophils # (auto) 0 10 ^3/uL (0-0.2); Basophils % (auto) 0.3 % (0.0-2.0); Eosinophils # (auto) 0.1 10 ^3/uL (0-0.8); Eosinophils % (auto) 0.5 % (0.0-7.0); Hematocrit 23.9 % (41.0-53.0); Hemoglobin 8.3 g/dL (13.5-17.5); Lymphocytes # (auto) 1.4 10 ^3/uL (0.4-5.4); Lymphocytes % (auto) 14.7 % (10.0-50.0); Mean Corpuscular Hgb Conc. 34.7 g/dL (32.0-36.0); Mean Corpuscular Volume 89.3 fL (80.0-100.0); Monocytes # (auto) 1.3 10 ^3/uL (0-1.3); Neutrophils # (auto) 6.9 10 ^3/uL (1.6-8.6); Neutrophils % (auto) 71.5 % (37.0-80.0); Red Blood Cells 2.67 10^6/uL (4.5-5.90); Red Cell Distribution Width 13.7 % (11.8-14.3); White Blood Cell 9.6 10^3/uL (4.4-10.8)
[2022-10-29] MEDS: DOCUSATE SOD 100 MG CAP PO SCH ×2 (09:01→22:24)
[2022-10-29] MEDS: CETIRIZINE HCL 5 MG PO SCH ×2 (09:01→22:00)
[2022-10-29] MEDS: CHOLECALCIFEROL (VITD3) 2,000 UNIT CAP/TAB PO SCH (09:01)
[2022-10-29] MEDS: CLOPIDOGREL BISULFATE 75 MG TAB PO SCH (09:01)
[2022-10-29 09:09] VITALS: BP 120/80
[2022-10-29] MEDS ORDERED: SODIUM ZIRCONIUM CYCL 10 GM PAK PO ONE (11:30)
[2022-10-29] MEDS ORDERED: DOCUSATE SOD 100 MG CAP PO ONE (11:45)
[2022-10-29 13:00] VITALS: BP 90/54
[2022-10-29 17:04] VITALS: BP 125/77
[2022-10-29] MEDS: TAMSULOSIN HYDROCHLORIDE 0.4 MG CAP PO SCH (17:32)
[2022-10-29] MEDS: ATORVASTATIN 20 MG TAB PO SCH (17:32)
[2022-10-29 20:00] VITALS: BP 106/58
[2022-10-29 22:37] VITALS: BP 106/58
[2022-10-30] MEDS: HYDROmorphone HCL 2 MG/ML VL/or syr IV PRN ×4 (01:33→14:52)
[2022-10-30 05:00] VITALS: BP 127/76
[2022-10-30] MEDS: InsuLIN REG 1unit/0.01ml Soln (100units/ml) SC SCH ×2 (06:00→12:37)
[2022-10-30] MEDS: ACCU-CHEK COMFORT CURVE STRIP VI SCH ×2 (06:10→12:37)
[2022-10-30] MEDS: SODIUM CHLOR 0.9% PF (SALINE LOCK) 10ML VIAL/SYR IV SCH ×2 (06:13→14:48)
[2022-10-30] MEDS: METOPROLOL SUCCINATE XL 50 MG TAB PO SCH (06:14)
[2022-10-30] MEDS: PANTOPRAZOLE 40 MG TAB PO SCH (06:15)
[2022-10-30 06:29] LABS: Hemoglobin 8.5 g/dL (13.5-17.5)
[2022-10-30 06:44] LABS: BUN/Creatinine Ratio 13.2 (10.0-20.0); Calcium 9.6 mg/dL (8.5-10.1); Potassium 4.6 mmol/L (3.5-5.1)
[2022-10-30 08:00] VITALS: BP 106/58
[2022-10-30 09:00] VITALS: BP 127/67
[2022-10-30] MEDS: DOCUSATE SOD 100 MG CAP PO SCH (09:21)
[2022-10-30] MEDS: CLOPIDOGREL BISULFATE 75 MG TAB PO SCH (09:21)
[2022-10-30] MEDS: CHOLECALCIFEROL (VITD3) 2,000 UNIT CAP/TAB PO SCH (09:22)
[2022-10-30] MEDS: CETIRIZINE HCL 5 MG PO SCH (09:24)
[2022-10-30 15:16] VITALS: BP 127/76
[2022-10-30 15:22] VITALS: BP 148/82
== END 2022-10-30 17:16 | disposition home health service (06) | DRG 469 ==
LOC: SUR 08:13 → TELE 12:37 → TELE-WESTW 15:39 → TELE 10-29 15:59 → TELE-WESTW 10-29 16:01
PROVIDERS: ADMIT Orthopaedic Surgery Adult Reconstructive Orthopaedic Surgery; ATTEND Internal Medicine
PROC: 0SRB0JZ Replacement of Left Hip Joint with Synthetic Substitute, Open Approach (ICD-10-PCS; principal; 2022-10-27 10:26)
DX: M16.12 Unilateral primary osteoarthritis, left hip (principal); N17.0 Acute kidney failure with tubular necrosis; M87.9 Osteonecrosis, unspecified; I50.42 Chronic combined systolic (congestive) and diastolic (congestive) heart failure; I13.0 Hypertensive heart and chronic kidney disease with heart failure and stage 1 through stage 4 chronic kidney disease, or unspecified chronic kidney disease; I25.10 Atherosclerotic heart disease of native coronary artery without angina pectoris; G40.909 Epilepsy, unspecified, not intractable, without status epilepticus; E78.5 Hyperlipidemia, unspecified; D64.9 Anemia, unspecified; G47.33 Obstructive sleep apnea (adult) (pediatric); E11.22 Type 2 diabetes mellitus with diabetic chronic kidney disease; N18.30 Chronic kidney disease, stage 3 unspecified; Z95.1 Presence of aortocoronary bypass graft
CPT/HCPCS: 36415; 72170; 80048; 80053; 81001; 82962; 83036; 85014; 85018; 85025; 85610; 85730; 86850; 86900; 86901; 97163; G0378; J0131; J0690; J1100; J1815; J1885; J2250; J2405; J2704

== ENCOUNTER → 2022-12-10 | Outpatient (CLI) | payer MEDICARE, OTHER ==
[~2022-12-10] MED LIST changes: -DIVA500T2 PO; +DIVA500T3 PO
== END | disposition home or self-care (01) ==
LOC: Rad HDHVI 14:02
PROVIDERS: ATTEND Internal Medicine Cardiovascular Disease
DX: I08.0 Rheumatic disorders of both mitral and aortic valves (principal); I10 Essential (primary) hypertension; R06.02 Shortness of breath
CPT/HCPCS: 93306

== ENCOUNTER → 2022-12-31 | Outpatient (CLI) | payer MEDICARE, OTHER ==
[~2022-12-31] VITALS: Ht 30.5 cm; Wt 0.5 kg
[~2022-12-31] MED LIST changes: +SODIUM FERR GLUC 62.5MG/5ML 125 MG in SODIUM CHL 0.9% 100 ML IV ONE; +SODIUM FERRIC GLUC CPLEX 62.5MG/5ML VIAL IV ONE
[2022-12-31 13:08] VITALS: BP 110/56; PULSE 84; RESP 16; O2SAT 97
[2022-12-31 14:18] VITALS: BP 112/63; PULSE 72; RESP 16; O2SAT 97
== END | disposition home or self-care (01) ==
LOC: CHF HDHVI 13:05
PROVIDERS: ATTEND Internal Medicine Cardiovascular Disease
DX: D50.9 Iron deficiency anemia, unspecified (principal); I10 Essential (primary) hypertension
CPT/HCPCS: 96365; G0463; J2916

== ENCOUNTER → 2023-01-07 | Outpatient (CLI) | payer MEDICARE, OTHER ==
[2023-01-07 13:12] VITALS: BP 101/64; PULSE 85; RESP 16; O2SAT 97
[2023-01-07 14:22] VITALS: BP 130/72; PULSE 70; RESP 18; O2SAT 97
== END | disposition home or self-care (01) ==
LOC: CHF HDHVI 12:56
PROVIDERS: ATTEND Internal Medicine Cardiovascular Disease
DX: D51.9 Vitamin B12 deficiency anemia, unspecified (principal); D50.9 Iron deficiency anemia, unspecified; I10 Essential (primary) hypertension
CPT/HCPCS: 96365; G0463; J2916

== ENCOUNTER → 2023-01-12 | Outpatient (CLI) | payer MEDICARE, OTHER ==
[2023-01-12 12:57] VITALS: BP 101/63; PULSE 86; RESP 18; O2SAT 96
[2023-01-12 14:10] VITALS: BP 135/72; PULSE 74; RESP 18; O2SAT 96
== END | disposition home or self-care (01) ==
LOC: CHF HDHVI 12:52
PROVIDERS: ATTEND Internal Medicine Cardiovascular Disease
DX: D50.9 Iron deficiency anemia, unspecified (principal); I10 Essential (primary) hypertension
CPT/HCPCS: 96365; G0463; J2916

== ENCOUNTER → 2023-01-14 | Outpatient (CLI) | payer MEDICARE, OTHER ==
[2023-01-14 13:07] VITALS: BP 105/77; PULSE 85; RESP 16; O2SAT 96
[2023-01-14 15:50] VITALS: BP 130/71; PULSE 72; RESP 16; O2SAT 96
== END | disposition home or self-care (01) ==
LOC: CHF HDHVI 12:59
PROVIDERS: ATTEND Internal Medicine Cardiovascular Disease
DX: D50.9 Iron deficiency anemia, unspecified (principal); I10 Essential (primary) hypertension
CPT/HCPCS: 96365; G0463; J2916

== ENCOUNTER → 2023-02-04 | Outpatient (CLI) | payer MEDICARE, OTHER ==
[~2023-02-04] VITALS: Ht 170.2 cm; Wt 86.2 kg
[~2023-02-04] MED LIST changes: +ADENOSINE 72 MG in GIVE UN-DILUTED 0 ML IV ONE; +ADENOSINE 90 MG/30 ML INJ IV ONE; +SODIUM CHLORIDE 0.9% 500 ML IV ONE; -SODIUM FERR GLUC 62.5MG/5ML 125 MG in SODIUM CHL 0.9% 100 ML IV ONE; -SODIUM FERRIC GLUC CPLEX 62.5MG/5ML VIAL IV ONE
== END | disposition home or self-care (01) ==
LOC: Rad HDHVI 13:07
PROVIDERS: ATTEND Internal Medicine Cardiovascular Disease
DX: I11.0 Hypertensive heart disease with heart failure (principal); I50.43 Acute on chronic combined systolic (congestive) and diastolic (congestive) heart failure; R07.89 Other chest pain; I25.10 Atherosclerotic heart disease of native coronary artery without angina pectoris; E11.9 Type 2 diabetes mellitus without complications; E78.5 Hyperlipidemia, unspecified; I25.2 Old myocardial infarction; I25.5 Ischemic cardiomyopathy; D64.9 Anemia, unspecified; Z82.49 Family history of ischemic heart disease and other diseases of the circulatory system
CPT/HCPCS: 78452; 93005; 96374; 96375; A9500; J0153

== ENCOUNTER → 2023-03-23 | Outpatient (CLI) | payer MEDICARE, OTHER ==
[~2023-03-23] MED LIST changes: -ADENOSINE 72 MG in GIVE UN-DILUTED 0 ML IV ONE; -ADENOSINE 90 MG/30 ML INJ IV ONE; -SODIUM CHLORIDE 0.9% 500 ML IV ONE
[2023-03-23 13:03] VITALS: BP 124/61; PULSE 95; RESP 16; O2SAT 94
[2023-03-23 13:15] VITALS: BP 118/71; PULSE 86; RESP 16; O2SAT 94
== END | disposition home or self-care (01) ==
LOC: CHF HDHVI 12:59
PROVIDERS: ATTEND Internal Medicine Cardiovascular Disease
DX: Z01.818 Encounter for other preprocedural examination (principal); R00.2 Palpitations; I10 Essential (primary) hypertension; I25.5 Ischemic cardiomyopathy; I20.0 Unstable angina
CPT/HCPCS: 93005; G0463

== ENCOUNTER 2023-03-26 08:20 | Day surgery (SDC) | payer MEDICARE, OTHER ==
[2023-03-23 13:56] LABS: Eosinophils # (auto) 0.1 10 ^3/uL (0-0.8); Lymphocytes # (auto) 1.8 10 ^3/uL (0.4-5.4); Neutrophils # (auto) 5.2 10 ^3/uL (1.6-8.6); White Blood Cell 7.8 10^3/uL (4.4-10.8)
[2023-03-23 13:58] LABS: Basophils # (auto) 0.1 10 ^3/uL (0-0.2); Basophils % (auto) 0.7 % (0.0-2.0); Eosinophils % (auto) 1.7 % (0.0-7.0); Hematocrit 32.3 % (41.0-53.0); Lymphocytes % (auto) 22.6 % (10.0-50.0); Mean Corpuscular Hemoglobin 30.5 pg (28.0-32.0); Mean Corpuscular Hgb Conc. 34.2 g/dL (32.0-36.0); Mean Corpuscular Volume 89.1 fL (80.0-100.0); Monocytes # (auto) 0.7 10 ^3/uL (0-1.3); Monocytes % (auto) 8.5 % (0.0-12.0); Neutrophils % (auto) 66.5 % (37.0-80.0); Red Blood Cells 3.63 10^6/uL (4.5-5.90); Red Cell Distribution Width 14.2 % (11.8-14.3)
[2023-03-23 14:13] LABS: INR 1.07 (0.9-1.15); Partial Thromboplastin Time 37.6 SEC (24.5-34.5); Prothrombin Time 11.2 sec (9.3-11.8)
[2023-03-23 14:47] LABS: Chloride 104 mmol/L (98-107); Potassium 4.9 mmol/L (3.5-5.1); Sodium 139 mmol/L (136-145)
[2023-03-23 14:48] LABS: Anion Gap 8 (5-15); Calcium 10.2 mg/dL (8.5-10.1); Carbon Dioxide 27 mmol/L (20-30)
[2023-03-23 14:53] LABS: BUN/Creatinine Ratio 13.2 (10.0-20.0); Blood Urea Nitrogen 17 mg/dL (9-23); Glucose 103 mg/dL (74-106)
[~2023-03-26] VITALS: Ht 172.7 cm; Wt 84.0 kg
[~2023-03-26 08:20] MED LIST changes: -ATOR10TA52 PO; -DIVA500T3 PO
[2023-03-26] MEDS ORDERED: SODIUM CHL 0.9% 0 ML ONE (08:48)
[2023-03-26] MEDS ORDERED: MIDAZOLAM HCL 2MG/2ML 2ml VIAL (1mg/ml) ONE (08:48)
[2023-03-26] MEDS ORDERED: ANGIOMAX 250 MG VIAL IV ONE (08:48)
[2023-03-26] MEDS ORDERED: fentaNYL CITRATE 100 MCG/2 ML VL ONE (08:48)
[2023-03-26] MEDS ORDERED: LIDOCAINE 2%HCL (LOCAL ANESTH.) INJ 20ML MDV ONE (08:49)
[2023-03-26] MEDS ORDERED: IOHEXOL 350 MG/ML 100ML IJ ONE ×2 (08:49→09:34)
== END 2023-03-26 11:40 | disposition home or self-care (01) ==
LOC: CATH 08:20
PROVIDERS: ATTEND Internal Medicine Cardiovascular Disease
DX: I25.10 Atherosclerotic heart disease of native coronary artery without angina pectoris (principal); R94.39 Abnormal result of other cardiovascular function study; E78.5 Hyperlipidemia, unspecified; E11.9 Type 2 diabetes mellitus without complications; K21.9 Gastro-esophageal reflux disease without esophagitis; Z88.8 Allergy status to other drugs, medicaments and biological substances; Z95.5 Presence of coronary angioplasty implant and graft; Z82.49 Family history of ischemic heart disease and other diseases of the circulatory system; Z83.3 Family history of diabetes mellitus; Z80.52 Family history of malignant neoplasm of bladder; Z87.891 Personal history of nicotine dependence; Z79.82 Long term (current) use of aspirin; Z79.84 Long term (current) use of oral hypoglycemic drugs; Z79.891 Long term (current) use of opiate analgesic
CPT/HCPCS: 36415; 80048; 85025; 85610; 85730; 93459; C1894; J1644; J2250; J3010; Q9967; 99152

== ENCOUNTER → 2023-07-01 | Outpatient (CLI) | payer MEDICARE, OTHER ==
[2023-07-01 16:27] VITALS: BP 143/86; PULSE 78
[2023-07-01 16:29] VITALS: BP 146/85; PULSE 84
== END | disposition home or self-care (01) ==
LOC: CHF HDHVI 14:55
PROVIDERS: ATTEND Internal Medicine Cardiovascular Disease
DX: I25.708 Atherosclerosis of coronary artery bypass graft(s), unspecified, with other forms of angina pectoris (principal); I11.0 Hypertensive heart disease with heart failure; I50.43 Acute on chronic combined systolic (congestive) and diastolic (congestive) heart failure; R07.89 Other chest pain; I25.5 Ischemic cardiomyopathy; E78.00 Pure hypercholesterolemia, unspecified; Z79.899 Other long term (current) drug therapy; Z79.82 Long term (current) use of aspirin
CPT/HCPCS: G0166

== ENCOUNTER → 2023-07-07 | Outpatient (CLI) | payer MEDICARE, OTHER ==
[2023-07-07 16:15] VITALS: BP 132/80; PULSE 78
[2023-07-07 16:16] VITALS: BP 123/82; PULSE 79
== END | disposition home or self-care (01) ==
LOC: CHF HDHVI 14:56
PROVIDERS: ATTEND Internal Medicine Cardiovascular Disease
DX: I11.0 Hypertensive heart disease with heart failure (principal); I50.43 Acute on chronic combined systolic (congestive) and diastolic (congestive) heart failure; I25.708 Atherosclerosis of coronary artery bypass graft(s), unspecified, with other forms of angina pectoris; R07.89 Other chest pain; I25.5 Ischemic cardiomyopathy; E78.00 Pure hypercholesterolemia, unspecified
CPT/HCPCS: G0166

== ENCOUNTER → 2023-07-08 | Outpatient (CLI) | payer MEDICARE, OTHER ==
[2023-07-08 16:16] VITALS: BP 119/81; PULSE 78
[2023-07-08 16:17] VITALS: BP 119/80; PULSE 70
== END | disposition home or self-care (01) ==
LOC: CHF HDHVI 14:47
PROVIDERS: ATTEND Internal Medicine Cardiovascular Disease
DX: I25.708 Atherosclerosis of coronary artery bypass graft(s), unspecified, with other forms of angina pectoris (principal); I11.0 Hypertensive heart disease with heart failure; I50.43 Acute on chronic combined systolic (congestive) and diastolic (congestive) heart failure; I25.5 Ischemic cardiomyopathy; R07.89 Other chest pain; E78.00 Pure hypercholesterolemia, unspecified
CPT/HCPCS: G0166

== ENCOUNTER → 2023-07-13 | Outpatient (CLI) | payer MEDICARE, OTHER ==
[2023-07-13 16:13] VITALS: BP 128/72; PULSE 74
[2023-07-13 16:14] VITALS: BP 130/70; PULSE 73
== END | disposition home or self-care (01) ==
LOC: CHF HDHVI 14:49
PROVIDERS: ATTEND Internal Medicine Cardiovascular Disease
DX: I25.708 Atherosclerosis of coronary artery bypass graft(s), unspecified, with other forms of angina pectoris (principal); I11.0 Hypertensive heart disease with heart failure; I50.43 Acute on chronic combined systolic (congestive) and diastolic (congestive) heart failure; E11.9 Type 2 diabetes mellitus without complications; I25.5 Ischemic cardiomyopathy; R07.89 Other chest pain; E78.00 Pure hypercholesterolemia, unspecified; R06.02 Shortness of breath; Z79.899 Other long term (current) drug therapy; Z79.82 Long term (current) use of aspirin
CPT/HCPCS: G0166

== ENCOUNTER → 2023-07-14 | Outpatient (CLI) | payer MEDICARE, OTHER ==
[2023-07-14 16:19] VITALS: BP_SYST 124; BP_SYST 140; BP_DIAS 70; BP_DIAS 71; PULSE 64; PULSE 68
[2023-07-14 16:20] VITALS: BP 124/71; PULSE 68
== END | disposition home or self-care (01) ==
LOC: CHF HDHVI 14:51
PROVIDERS: ATTEND Internal Medicine Cardiovascular Disease
DX: I11.0 Hypertensive heart disease with heart failure (principal); I50.43 Acute on chronic combined systolic (congestive) and diastolic (congestive) heart failure; I25.708 Atherosclerosis of coronary artery bypass graft(s), unspecified, with other forms of angina pectoris; R07.89 Other chest pain; I25.5 Ischemic cardiomyopathy; E78.00 Pure hypercholesterolemia, unspecified
CPT/HCPCS: G0166

== ENCOUNTER → 2023-07-15 | Outpatient (CLI) | payer MEDICARE, OTHER ==
[2023-07-15 15:58] VITALS: BP 117/80; PULSE 83
[2023-07-15 16:03] VITALS: BP 130/80; PULSE 76
== END | disposition home or self-care (01) ==
LOC: CHF HDHVI 14:53
PROVIDERS: ATTEND Internal Medicine Cardiovascular Disease
DX: I11.0 Hypertensive heart disease with heart failure (principal); I50.43 Acute on chronic combined systolic (congestive) and diastolic (congestive) heart failure; I25.118 Atherosclerotic heart disease of native coronary artery with other forms of angina pectoris; E78.00 Pure hypercholesterolemia, unspecified; Z98.61 Coronary angioplasty status
CPT/HCPCS: G0166

== ENCOUNTER → 2023-07-20 | Outpatient (CLI) | payer MEDICARE, OTHER ==
[2023-07-20 16:21] VITALS: BP 112/68; PULSE 62
[2023-07-20 16:22] VITALS: BP 110/65; PULSE 67
== END | disposition home or self-care (01) ==
LOC: CHF HDHVI 14:56
PROVIDERS: ATTEND Internal Medicine Cardiovascular Disease
DX: I11.0 Hypertensive heart disease with heart failure (principal); I50.43 Acute on chronic combined systolic (congestive) and diastolic (congestive) heart failure; I25.708 Atherosclerosis of coronary artery bypass graft(s), unspecified, with other forms of angina pectoris; R07.89 Other chest pain; I25.5 Ischemic cardiomyopathy; E78.00 Pure hypercholesterolemia, unspecified
CPT/HCPCS: G0166

== ENCOUNTER → 2023-07-22 | Outpatient (CLI) | payer MEDICARE, OTHER ==
[2023-07-22 16:18] VITALS: BP 140/68; PULSE 63
[2023-07-22 16:19] VITALS: BP 123/73; PULSE 73
== END | disposition home or self-care (01) ==
LOC: CHF HDHVI 14:56
PROVIDERS: ATTEND Internal Medicine Cardiovascular Disease
DX: I25.708 Atherosclerosis of coronary artery bypass graft(s), unspecified, with other forms of angina pectoris (principal); I11.0 Hypertensive heart disease with heart failure; I50.43 Acute on chronic combined systolic (congestive) and diastolic (congestive) heart failure; E11.9 Type 2 diabetes mellitus without complications; R06.02 Shortness of breath; R07.89 Other chest pain; E78.00 Pure hypercholesterolemia, unspecified; Z79.899 Other long term (current) drug therapy
CPT/HCPCS: G0166

== ENCOUNTER → 2023-07-23 | Outpatient (CLI) | payer MEDICARE, OTHER ==
[2023-07-23 16:32] VITALS: BP 123/82; PULSE 68
[2023-07-23 16:33] VITALS: BP 125/75; PULSE 64
== END | disposition home or self-care (01) ==
LOC: CHF HDHVI 14:59
PROVIDERS: ATTEND Internal Medicine Cardiovascular Disease
DX: I25.118 Atherosclerotic heart disease of native coronary artery with other forms of angina pectoris (principal); I11.0 Hypertensive heart disease with heart failure; I50.43 Acute on chronic combined systolic (congestive) and diastolic (congestive) heart failure; R07.89 Other chest pain; I25.5 Ischemic cardiomyopathy; E78.00 Pure hypercholesterolemia, unspecified; Z79.899 Other long term (current) drug therapy
CPT/HCPCS: G0166

== ENCOUNTER → 2023-07-27 | Outpatient (CLI) | payer MEDICARE, OTHER ==
[2023-07-27 16:07] VITALS: BP 132/70; PULSE 67
[2023-07-27 16:11] VITALS: BP 110/68; PULSE 65
== END | disposition home or self-care (01) ==
LOC: CHF HDHVI 14:48
PROVIDERS: ATTEND Internal Medicine Cardiovascular Disease
DX: I11.0 Hypertensive heart disease with heart failure (principal); I50.43 Acute on chronic combined systolic (congestive) and diastolic (congestive) heart failure; I25.708 Atherosclerosis of coronary artery bypass graft(s), unspecified, with other forms of angina pectoris; R07.89 Other chest pain; I25.5 Ischemic cardiomyopathy; E78.00 Pure hypercholesterolemia, unspecified
CPT/HCPCS: G0166

== ENCOUNTER → 2023-07-28 | Outpatient (CLI) | payer MEDICARE, OTHER ==
[2023-07-28 16:13] VITALS: BP 124/71; PULSE 63
[2023-07-28 16:14] VITALS: BP 124/78; PULSE 68
== END | disposition home or self-care (01) ==
LOC: CHF HDHVI 14:54
PROVIDERS: ATTEND Internal Medicine Cardiovascular Disease
DX: I25.708 Atherosclerosis of coronary artery bypass graft(s), unspecified, with other forms of angina pectoris (principal); I11.0 Hypertensive heart disease with heart failure; I50.43 Acute on chronic combined systolic (congestive) and diastolic (congestive) heart failure; I25.5 Ischemic cardiomyopathy; R07.89 Other chest pain; E78.00 Pure hypercholesterolemia, unspecified; Z79.82 Long term (current) use of aspirin; Z79.899 Other long term (current) drug therapy; Z79.84 Long term (current) use of oral hypoglycemic drugs
CPT/HCPCS: G0166

== ENCOUNTER → 2023-07-29 | Outpatient (CLI) | payer MEDICARE, OTHER ==
[2023-07-29 15:58] VITALS: BP 105/68; PULSE 73
[2023-07-29 16:11] VITALS: BP 125/70; PULSE 72
== END | disposition home or self-care (01) ==
LOC: CHF HDHVI 14:58
PROVIDERS: ATTEND Internal Medicine Cardiovascular Disease
DX: I25.708 Atherosclerosis of coronary artery bypass graft(s), unspecified, with other forms of angina pectoris (principal); I50.43 Acute on chronic combined systolic (congestive) and diastolic (congestive) heart failure; E11.9 Type 2 diabetes mellitus without complications; E78.00 Pure hypercholesterolemia, unspecified
CPT/HCPCS: G0166

== ENCOUNTER → 2023-08-11 | Outpatient (CLI) | payer MEDICARE, OTHER ==
[2023-08-11 15:54] VITALS: BP 119/74; PULSE 64
[2023-08-11 16:07] VITALS: BP 115/70; PULSE 61
== END | disposition home or self-care (01) ==
LOC: CHF HDHVI 14:55
PROVIDERS: ATTEND Internal Medicine Cardiovascular Disease
DX: I11.0 Hypertensive heart disease with heart failure (principal); I50.43 Acute on chronic combined systolic (congestive) and diastolic (congestive) heart failure; I25.118 Atherosclerotic heart disease of native coronary artery with other forms of angina pectoris; R07.89 Other chest pain; I25.5 Ischemic cardiomyopathy; E78.00 Pure hypercholesterolemia, unspecified
CPT/HCPCS: G0166

== ENCOUNTER → 2023-08-12 | Outpatient (CLI) | payer MEDICARE, OTHER ==
[2023-08-12 16:24] VITALS: BP 128/70; PULSE 70
[2023-08-12 16:25] VITALS: BP 124/80; PULSE 67
== END | disposition home or self-care (01) ==
LOC: CHF HDHVI 14:51
PROVIDERS: ATTEND Internal Medicine Cardiovascular Disease
DX: I25.708 Atherosclerosis of coronary artery bypass graft(s), unspecified, with other forms of angina pectoris (principal); I11.0 Hypertensive heart disease with heart failure; I50.43 Acute on chronic combined systolic (congestive) and diastolic (congestive) heart failure; R07.89 Other chest pain; I25.5 Ischemic cardiomyopathy; E78.00 Pure hypercholesterolemia, unspecified; Z95.1 Presence of aortocoronary bypass graft; R06.02 Shortness of breath; E11.9 Type 2 diabetes mellitus without complications; Z98.890 Other specified postprocedural states
CPT/HCPCS: G0166

== ENCOUNTER → 2023-08-24 | Outpatient (CLI) | payer MEDICARE, OTHER ==
[2023-08-24 15:46] VITALS: BP 148/85; PULSE 65
[2023-08-24 15:53] VITALS: BP 126/68; PULSE 68
== END | disposition home or self-care (01) ==
LOC: CHF HDHVI 14:53
PROVIDERS: ATTEND Internal Medicine Cardiovascular Disease
DX: I25.708 Atherosclerosis of coronary artery bypass graft(s), unspecified, with other forms of angina pectoris (principal); I11.0 Hypertensive heart disease with heart failure; I50.43 Acute on chronic combined systolic (congestive) and diastolic (congestive) heart failure; E11.9 Type 2 diabetes mellitus without complications; R06.02 Shortness of breath; Z95.1 Presence of aortocoronary bypass graft; Z98.61 Coronary angioplasty status; R07.89 Other chest pain; I25.5 Ischemic cardiomyopathy; E78.00 Pure hypercholesterolemia, unspecified; Z79.899 Other long term (current) drug therapy
CPT/HCPCS: G0166

== ENCOUNTER → 2023-08-25 | Outpatient (CLI) | payer MEDICARE, OTHER ==
[2023-08-25 16:00] VITALS: BP 149/82; PULSE 61
[2023-08-25 16:07] VITALS: BP 130/70; PULSE 58
== END | disposition home or self-care (01) ==
LOC: CHF HDHVI 14:54
PROVIDERS: ATTEND Internal Medicine Cardiovascular Disease
DX: I11.0 Hypertensive heart disease with heart failure (principal); I50.43 Acute on chronic combined systolic (congestive) and diastolic (congestive) heart failure; I25.708 Atherosclerosis of coronary artery bypass graft(s), unspecified, with other forms of angina pectoris; R07.89 Other chest pain; I25.5 Ischemic cardiomyopathy; I10 Essential (primary) hypertension; E78.00 Pure hypercholesterolemia, unspecified
CPT/HCPCS: G0166

== ENCOUNTER → 2023-08-26 | Outpatient (CLI) | payer MEDICARE, OTHER ==
[2023-08-26 16:16] VITALS: BP 130/75; PULSE 67
[2023-08-26 16:18] VITALS: BP 124/80; PULSE 67
== END | disposition home or self-care (01) ==
LOC: CHF HDHVI 14:58
PROVIDERS: ATTEND Internal Medicine Cardiovascular Disease
DX: I25.118 Atherosclerotic heart disease of native coronary artery with other forms of angina pectoris (principal); I10 Essential (primary) hypertension; E11.9 Type 2 diabetes mellitus without complications; I73.9 Peripheral vascular disease, unspecified; E78.00 Pure hypercholesterolemia, unspecified
CPT/HCPCS: G0166

== ENCOUNTER → 2023-10-12 | Outpatient (CLI) | payer MEDICARE, OTHER ==
[~2023-10-12] MED LIST changes: +READI-CAT 2 (BARIUM SULF)(VANILLA SMOOTHIE) 450ML ONE
== END | disposition home or self-care (01) ==
LOC: Rad HDHVI 13:02
PROVIDERS: ATTEND Internal Medicine Cardiovascular Disease
DX: K57.32 Diverticulitis of large intestine without perforation or abscess without bleeding (principal)
CPT/HCPCS: 74176

== ENCOUNTER → 2024-01-28 | Day surgery (SDC) | payer MEDICARE, OTHER ==
[2024-01-26 14:31] LABS: Basophils # (auto) 0.1 10 ^3/uL (0-0.2); Basophils % (auto) 1.1 % (0.0-2.0); Eosinophils # (auto) 0.2 10 ^3/uL (0-0.8); Eosinophils % (auto) 2.1 % (0.0-7.0); Hematocrit 32.3 % (41.0-53.0); Hemoglobin 10.9 g/dL (13.5-17.5); Lymphocytes # (auto) 2.2 10 ^3/uL (0.4-5.4); Lymphocytes % (auto) 27.1 % (10.0-50.0); Mean Corpuscular Hemoglobin 31.4 pg (28.0-32.0); Mean Corpuscular Hgb Conc. 33.7 g/dL (32.0-36.0); Mean Corpuscular Volume 93.1 fL (80.0-100.0); Monocytes # (auto) 0.7 10 ^3/uL (0-1.3); Monocytes % (auto) 8.2 % (0.0-12.0); Neutrophils % (auto) 61.5 % (37.0-80.0); Red Blood Cells 3.47 10^6/uL (4.5-5.90); Red Cell Distribution Width 14.5 % (11.8-14.3); White Blood Cell 8.1 10^3/uL (4.4-10.8)
[2024-01-26 14:56] LABS: INR 1.08 (0.9-1.15); Partial Thromboplastin Time 33.3 SEC (24.5-34.5); Prothrombin Time 11.4 sec (9.3-11.8)
[2024-01-26 15:05] LABS: Albumin 4.2 g/dL (3.2-4.8); Alkaline Phosphatase 60 U/L (46-116); Anion Gap 6 (5-15); Aspartate Aminotransferase < 8 U/L (13-40); BUN/Creatinine Ratio 9.4 (10.0-20.0); Bilirubin, Total 0.4 mg/dL (0.2-1.0); Blood Urea Nitrogen 14 mg/dL (9-23); Calcium 9.8 mg/dL (8.7-10.4); Carbon Dioxide 28 mmol/L (20-30); Chloride 107 mmol/L (98-107); Glucose 98 mg/dL (74-106); Potassium 4.6 mmol/L (3.5-5.1); Sodium 141 mmol/L (136-145); Total Protein 7.4 g/dL (5.7-8.2)
[2024-01-26 15:07] LABS: Alanine Aminotransferase < 9 U/L (7-40)
[2024-01-26 17:04] LABS: Urine Bacteria FEW /hpf (None Seen); Urine Blood Negative /uL (Negative); Urine Clarity Turbid (Clear); Urine Color Yellow (Yellow); Urine Protein, UAD 1+ (Negative); Urine Specific Gravity 1.022 (1.001-1.035); Urine Urobilinogen Normal (Negative); Urine WBC 141 /hpf (0 - 3); Urine pH 6.5 (5.0-9.0)
[~2024-01-28] VITALS: Ht 170.2 cm; Wt 72.6 kg
[~2024-01-28] MED LIST changes: +GLYCOPYRROLATE 0.2 MG/ML 1ML VIAL ONE; +KETAMINE 50mg/ML 1ml syringe ONE; +LIDOCAINE VISCOUS 2% 15ML UD ONE; +MIDAZOLAM HCL 2MG/2ML 2ml VIAL (1mg/ml) ONE; +ONDANSETRON HCL 4 MG/2 ML VIAL ONE; +PROPOFOL 10 MG/ML 20 ML IV ONE; -READI-CAT 2 (BARIUM SULF)(VANILLA SMOOTHIE) 450ML ONE; +ePHEDrine SULFATE 50 MG/ML AMP ONE; +fentaNYL CITRATE 100 MCG/2 ML VL ONE
[2024-01-28 10:39] VITALS: PULSE 56; RESP 12; TEMP 97.3; O2SAT 99
[2024-01-28 10:55] VITALS: O2SAT 97
[2024-01-28 11:20] VITALS: BP 160/77; PULSE 79; RESP 12
== END | disposition home or self-care (01) ==
LOC: GI 08:07
PROVIDERS: ATTEND Internal Medicine Gastroenterology
DX: R63.4 Abnormal weight loss (principal); R19.7 Diarrhea, unspecified; D12.4 Benign neoplasm of descending colon; D12.5 Benign neoplasm of sigmoid colon; K29.50 Unspecified chronic gastritis without bleeding; K64.8 Other hemorrhoids; I25.10 Atherosclerotic heart disease of native coronary artery without angina pectoris; E11.9 Type 2 diabetes mellitus without complications; K21.9 Gastro-esophageal reflux disease without esophagitis; I11.0 Hypertensive heart disease with heart failure; I50.9 Heart failure, unspecified; I25.2 Old myocardial infarction; Z86.2 Personal history of diseases of the blood and blood-forming organs and certain disorders involving the immune mechanism; Z95.1 Presence of aortocoronary bypass graft; Z79.82 Long term (current) use of aspirin; Z79.84 Long term (current) use of oral hypoglycemic drugs; Z96.642 Presence of left artificial hip joint; Z87.891 Personal history of nicotine dependence; Z98.890 Other specified postprocedural states; Z85.46 Personal history of malignant neoplasm of prostate; Z83.3 Family history of diabetes mellitus; Z80.8 Family history of malignant neoplasm of other organs or systems
CPT/HCPCS: 36415; 43239; 45380; 45385; 80053; 81001; 82962; 85025; 85610; 85730; 88305; 88312; 88342; J2250; J2405; J2704; J3010; J7030

== ENCOUNTER → 2024-03-09 | Outpatient (CLI) | payer MEDICARE, OTHER ==
[~2024-03-09] MED LIST changes: -GLYCOPYRROLATE 0.2 MG/ML 1ML VIAL ONE; -KETAMINE 50mg/ML 1ml syringe ONE; -LIDOCAINE VISCOUS 2% 15ML UD ONE; -MIDAZOLAM HCL 2MG/2ML 2ml VIAL (1mg/ml) ONE; -ONDANSETRON HCL 4 MG/2 ML VIAL ONE; -PROPOFOL 10 MG/ML 20 ML IV ONE; -ePHEDrine SULFATE 50 MG/ML AMP ONE; -fentaNYL CITRATE 100 MCG/2 ML VL ONE
== END | disposition home or self-care (01) ==
LOC: Rad HDHVI 15:04
PROVIDERS: ATTEND Internal Medicine Cardiovascular Disease
DX: I10 Essential (primary) hypertension (principal); I42.9 Cardiomyopathy, unspecified
CPT/HCPCS: 93306

== ENCOUNTER → 2024-03-21 | Outpatient (CLI) | payer MEDICARE, OTHER ==
[~2024-03-21] VITALS: Ht 170.2 cm; Wt 73.0 kg
[~2024-03-21] MED LIST changes: +ADENOSINE 61 MG in GIVE UN-DILUTED 0 ML IV ONE; +ADENOSINE 90 MG/30 ML INJ IV ONE
== END | disposition home or self-care (01) ==
LOC: Rad HDHVI 13:01
PROVIDERS: ATTEND Internal Medicine Cardiovascular Disease
DX: I11.0 Hypertensive heart disease with heart failure (principal); I50.43 Acute on chronic combined systolic (congestive) and diastolic (congestive) heart failure; I25.5 Ischemic cardiomyopathy; I25.810 Atherosclerosis of coronary artery bypass graft(s) without angina pectoris; E78.00 Pure hypercholesterolemia, unspecified; I10 Essential (primary) hypertension; I25.2 Old myocardial infarction; E11.9 Type 2 diabetes mellitus without complications; Z95.1 Presence of aortocoronary bypass graft
CPT/HCPCS: 78452; 93005; 96374; 96375; A9500; J0153

== ENCOUNTER → 2024-07-20 | Day surgery (SDC) | payer MEDICARE, OTHER ==
[2024-07-14 15:18] LABS: Urine Bacteria None Seen /hpf (None Seen)
[2024-07-14 15:32] LABS: Basophils # (auto) 0.1 10 ^3/uL (0-0.2); Basophils % (auto) 0.9 % (0.0-2.0); Eosinophils # (auto) 0.1 10 ^3/uL (0-0.8); Eosinophils % (auto) 1.5 % (0.0-7.0); Hematocrit 35.8 % (41.0-53.0); Hemoglobin 11.7 g/dL (13.5-17.5); Lymphocytes # (auto) 1.7 10 ^3/uL (0.4-5.4); Lymphocytes % (auto) 21.2 % (10.0-50.0); Mean Corpuscular Hemoglobin 29.6 pg (28.0-32.0); Mean Corpuscular Hgb Conc. 32.7 g/dL (32.0-36.0); Mean Corpuscular Volume 90.5 fL (80.0-100.0); Monocytes # (auto) 0.7 10 ^3/uL (0-1.3); Monocytes % (auto) 8.7 % (0.0-12.0); Neutrophils # (auto) 5.5 10 ^3/uL (1.6-8.6); Neutrophils % (auto) 67.7 % (37.0-80.0); Platelet Count (auto) 307 10^3/uL (140-450); Red Blood Cells 3.96 10^6/uL (4.5-5.90); Red Cell Distribution Width 14.6 % (11.8-14.3); White Blood Cell 8.2 10^3/uL (4.4-10.8)
[2024-07-14 15:52] LABS: INR 1.04 (0.9-1.15); Partial Thromboplastin Time 34.4 SEC (24.5-34.5)
[2024-07-14 16:11] LABS: Urine Blood Negative /uL (Negative); Urine Clarity Clear (Clear); Urine Color Light-Yellow (Yellow); Urine Protein, UAD Negative (Negative); Urine Specific Gravity 1.013 (1.001-1.035); Urine Squamous Epithelial Cell None Seen /hpf (<5); Urine Urobilinogen Normal (Negative); Urine WBC 1 /HPF (0-3)
[2024-07-14 16:21] LABS: Albumin 4.6 g/dL (3.2-4.8); Alkaline Phosphatase 76 U/L (46-116); Anion Gap 7 (5-15); BUN/Creatinine Ratio 14.2 (10.0-20.0); Calcium 10.3 mg/dL (8.7-10.4); Carbon Dioxide 28 mmol/L (20-31); Chloride 103 mmol/L (98-107); Glucose 106 mg/dL (74-106); Sodium 138 mmol/L (136-145); Total Protein 7.8 g/dL (5.7-8.2)
[2024-07-14 16:22] LABS: Alanine Aminotransferase < 9 U/L (7-40); Aspartate Aminotransferase 9 U/L (13-40); Bilirubin, Total 0.3 mg/dL (0.2-1.0); Blood Urea Nitrogen 25 mg/dL (9-23)
[~2024-07-20] VITALS: Ht 170.2 cm; Wt 83.9 kg
[~2024-07-20] MED LIST changes: -ADENOSINE 61 MG in GIVE UN-DILUTED 0 ML IV ONE; -ADENOSINE 90 MG/30 ML INJ IV ONE; +AMIO200T33 PO; +BUPIVACAINE 0.5% P/F INJ 10 ML VIAL ONE; -CETI5TAB6 PO; +FLUT1SPR5; -FLUT50SP31; +HYDROmorphone HCL 2 MG/ML VL/or syr IV PRN; +KETOROLAC TROMETH 30 MG/ML 1ML VIAL ONE; +LIDOCAINE W/ EPINEPHRINE 1% 20ML VIAL ONE; +MORPHINE SULF PF 5 MG/10 ML VIAL ONE; +MORPHINE SULFATE 4 MG/ML SYR/VIAL IV PRN; +NITR0.4S29 SL; +ONDANSETRON HCL 4 MG/2 ML VIAL ONE; +PROPOFOL 10 MG/ML 20 ML IV ONE; +ceFAZolin 1GM VL ONE; +ceFAZolin 2 GM/D5W100ml 100 ML IV ONE; +ePHEDrine SULFATE 50 MG/ML AMP IV PRN
--- NOTE | 2024-07-20 11:15 | DVHOP ---
DATE OF SURGERY: 07/20/2024 PREOPERATIVE DIAGNOSIS: Mass, left buttock. POSTOPERATIVE DIAGNOSIS: Sebaceous cyst, left buttock. SURGEON: Donte Santana MD JACKSCREW WORKER: J Carlos Moffett. ANESTHESIA: General endotracheal. ANESTHESIOLOGIST: Dr. Mirza. PROCEDURE: Excision of epidermal inclusion sebaceous cyst. DESCRIPTION OF PROCEDURE: Under adequate anesthesia, with the patient's skin prepped and draped, the patient in the lateral decubitus position with the left flank facing upward and the torso flexed, an incision was made over the fist size mass of the left buttock, dissection subcutaneous tissues proved this to be a sebaceous cyst. The cyst was then removed with the dissection of the sac meticulously done into the depths of the wound carefully protecting sciatic nerve, which would be in that vicinity. The wound was then profusely irrigated, irrigant was aspirated, tissues approximated using Prolene sutures, subcutaneous Monocryl sutures. The patient remained stable throughout the procedure, left the operating room following an accurate needle and sponge count. Donte Santana MD PF/SURJIT TID: [id number] RECEIPT: [id number]
[2024-07-20 11:16] VITALS: TEMP 98.5; O2SAT 97
[2024-07-20 11:40] VITALS: BP 137/71; PULSE 58; RESP 13; O2SAT 97
== END | disposition home or self-care (01) ==
LOC: SUR 09:04
PROVIDERS: ATTEND Surgery
DX: L72.0 Epidermal cyst (principal); I11.0 Hypertensive heart disease with heart failure; I50.9 Heart failure, unspecified; I25.2 Old myocardial infarction; K21.9 Gastro-esophageal reflux disease without esophagitis; E11.9 Type 2 diabetes mellitus without complications; Z95.5 Presence of coronary angioplasty implant and graft; Z87.891 Personal history of nicotine dependence; Z88.8 Allergy status to other drugs, medicaments and biological substances; Z85.46 Personal history of malignant neoplasm of prostate; Z83.3 Family history of diabetes mellitus; Z79.82 Long term (current) use of aspirin; Z79.01 Long term (current) use of anticoagulants; Z79.84 Long term (current) use of oral hypoglycemic drugs; Z95.1 Presence of aortocoronary bypass graft; Z90.49 Acquired absence of other specified parts of digestive tract; Z86.73 Personal history of transient ischemic attack (TIA), and cerebral infarction without residual deficits
CPT/HCPCS: 11406; 12032; 36415; 80053; 81001; 82962; 85025; 85610; 85730; 88305; J0690; J1885; J2270; J2405; J2704; J3490; A4565

== ENCOUNTER → 2024-08-11 | Outpatient (CLI) | payer MEDICARE, OTHER ==
[~2024-08-11] MED LIST changes: -BUPIVACAINE 0.5% P/F INJ 10 ML VIAL ONE; -HYDROmorphone HCL 2 MG/ML VL/or syr IV PRN; -KETOROLAC TROMETH 30 MG/ML 1ML VIAL ONE; -LIDOCAINE W/ EPINEPHRINE 1% 20ML VIAL ONE; -MORPHINE SULF PF 5 MG/10 ML VIAL ONE; -MORPHINE SULFATE 4 MG/ML SYR/VIAL IV PRN; -ONDANSETRON HCL 4 MG/2 ML VIAL ONE; -PROPOFOL 10 MG/ML 20 ML IV ONE; -ceFAZolin 1GM VL ONE; -ceFAZolin 2 GM/D5W100ml 100 ML IV ONE; -ePHEDrine SULFATE 50 MG/ML AMP IV PRN
== END | disposition home or self-care (01) ==
LOC: Rad HDHVI 08:59
PROVIDERS: ATTEND Internal Medicine Cardiovascular Disease
DX: I50.30 Unspecified diastolic (congestive) heart failure (principal)
CPT/HCPCS: 93306

== ENCOUNTER → 2024-10-26 | Outpatient (CLI) | payer MEDICARE, OTHER ==
[~2024-10-26] MED LIST changes: +DICL1GEL59 TOP; -ICOS1CAP OR; +ICOS1CAP PO; +MAGN400C3 PO; +POM
[2024-10-26 09:10] VITALS: BP 131/70; PULSE 68; RESP 16; O2SAT 96
[2024-10-26 09:31] VITALS: BP 126/65; PULSE 70; RESP 16; O2SAT 96
--- NOTE | 2024-10-26 12:07 | DVH ---
EXAM: XY CHEST TWO VIEWS ROUTINE HISTORY: PRE OP CARDIAC CLEARANCE COMPARISON: None TECHNIQUE: Frontal and lateral views of the chest were performed. FINDINGS: No pneumothorax, pulmonary edema, pleural effusions, or consolidative infiltrates. The lungs are hype rexpanded with flattening of the diaphragm on the lateral film. The heart is not enlarged. There are postoperative changes of CABG. No fractures are identified about the bony thorax. 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 IMPRESSION: 1. Pulmonary hyperexpansion without evidence of acute intrathoracic process. 2. Postoperative changes of the heart.
== END | disposition home or self-care (01) ==
LOC: Rad HDHVI 09:04
PROVIDERS: ATTEND Internal Medicine Cardiovascular Disease
DX: Z01.818 Encounter for other preprocedural examination (principal); I49.3 Ventricular premature depolarization; R94.31 Abnormal electrocardiogram [ECG] [EKG]; M51.34 Other intervertebral disc degeneration, thoracic region; J98.4 Other disorders of lung; J98.6 Disorders of diaphragm; I48.91 Unspecified atrial fibrillation; Z95.1 Presence of aortocoronary bypass graft; Z98.890 Other specified postprocedural states
CPT/HCPCS: 71046; 93005; G0463

== ENCOUNTER 2024-11-01 10:59 | Day surgery (SDC) | payer MEDICARE, OTHER ==
[2024-10-26 11:08] LABS: Basophils # (auto) 0 10 ^3/uL (0-0.2); Basophils % (auto) 0.4 % (0.0-2.0); Eosinophils # (auto) 0.1 10 ^3/uL (0-0.8); Eosinophils % (auto) 0.8 % (0.0-7.0); Hematocrit 37.2 % (41.0-53.0); Hemoglobin 12.4 g/dL (13.5-17.5); Lymphocytes # (auto) 1.9 10 ^3/uL (0.4-5.4); Lymphocytes % (auto) 17.8 % (10.0-50.0); Mean Corpuscular Hemoglobin 29.8 pg (28.0-32.0); Mean Corpuscular Hgb Conc. 33.3 g/dL (32.0-36.0); Mean Corpuscular Volume 89.6 fL (80.0-100.0); Monocytes # (auto) 0.8 10 ^3/uL (0-1.3); Monocytes % (auto) 7.9 % (0.0-12.0); Neutrophils # (auto) 7.7 10 ^3/uL (1.6-8.6); Neutrophils % (auto) 73.1 % (37.0-80.0); Platelet Count (auto) 394 10^3/uL (140-450); Red Blood Cells 4.16 10^6/uL (4.5-5.90); Red Cell Distribution Width 14.6 % (11.8-14.3); White Blood Cell 10.6 10^3/uL (4.4-10.8)
[2024-10-26 11:25] LABS: INR 1.09 (0.9-1.15); Partial Thromboplastin Time 37.4 SEC (24.5-34.5); Prothrombin Time 11.5 sec (9.3-11.8)
[2024-10-26 11:28] LABS: Chloride 100 mmol/L (98-107); Potassium 4.8 mmol/L (3.5-5.1); Sodium 139 mmol/L (136-145)
[2024-10-26 11:29] LABS: Anion Gap 10 (5-15); Calcium 9.9 mg/dL (8.7-10.4); Carbon Dioxide 29 mmol/L (20-31)
[2024-10-26 11:34] LABS: BUN/Creatinine Ratio 12.5 (10.0-20.0); Blood Urea Nitrogen 23 mg/dL (9-23); Glucose 124 mg/dL (74-106)
[~2024-11-01] VITALS: Ht 170.2 cm; Wt 86.6 kg
[~2024-11-01 10:59] MED LIST changes: -CLOP75TA28 PO; -DIVA1TAB38 PO; -MAGN400C3 PO; -TURMPOW XX
[2024-11-01 11:25] VITALS: BP 130/73; PULSE 61; RESP 19; TEMP 98.4; O2SAT 96
[2024-11-01] MEDS ORDERED: MAGN400C3 PO (11:55)
[2024-11-01 12:03] VITALS: BP 146/63; PULSE 59; RESP 16; O2SAT 97
== END 2024-11-01 12:10 | disposition home or self-care (01) ==
LOC: CATH 10:59
PROVIDERS: ATTEND Internal Medicine Cardiovascular Disease
DX: I48.91 Unspecified atrial fibrillation (principal); Z53.8 Procedure and treatment not carried out for other reasons; Z88.8 Allergy status to other drugs, medicaments and biological substances
CPT/HCPCS: 36415; 80048; 85025; 85610; 85730

== ENCOUNTER 2025-02-27 09:03 | Outpatient (CLI) | payer MEDICARE, OTHER ==
[~2025-02-27 09:03] MED LIST changes: +MAGN400C3 PO; -POM
[2025-02-27 09:05] VITALS: BP 182/79; PULSE 53; RESP 16; O2SAT 96
[2025-02-27 09:25] VITALS: BP 180/81; PULSE 54; RESP 16; O2SAT 96
[2025-02-27] MEDS ORDERED: APIX5TAB PO (10:32)
[2025-02-27] MEDS ORDERED: CHOL20007 OR (10:32)
[2025-02-27] MEDS ORDERED: CETI-195 PO (10:32)
== END 2025-02-27 17:00 | disposition home or self-care (01) ==
LOC: CHF HDHVI 09:03
PROVIDERS: ATTEND Internal Medicine Cardiovascular Disease
DX: Z01.810 Encounter for preprocedural cardiovascular examination (principal); R00.1 Bradycardia, unspecified
CPT/HCPCS: 93005; G0463

== ENCOUNTER 2025-03-02 06:49 | Day surgery (SDC) | payer MEDICARE, OTHER ==
[2025-02-27 12:38] LABS: Hematocrit 34.4 % (41.0-53.0); Hemoglobin 11.6 g/dL (13.5-17.5); Mean Corpuscular Hemoglobin 30.2 pg (28.0-32.0); Mean Corpuscular Volume 89.5 fL (80.0-100.0); Nucleated Red Blood Cells % 0.0 %
[2025-02-27 12:46] LABS: INR 1.0 (0.9-1.15); Partial Thromboplastin Time 33.9 SEC (24.5-34.5); Prothrombin Time 10.6 sec (9.3-11.8)
[2025-02-27 12:50] LABS: Anion Gap 12 (5-15); Carbon Dioxide 27 mmol/L (20-31); Chloride 102 mmol/L (98-107); Sodium 141 mmol/L (136-145)
[2025-02-27 12:51] LABS: Calcium 9.7 mg/dL (8.7-10.4)
[2025-02-27 12:56] LABS: BUN/Creatinine Ratio 12.2 (10.0-20.0); Blood Urea Nitrogen 20 mg/dL (9-23); Glucose 85 mg/dL (74-106); Potassium 5.4 mmol/L (3.5-5.1)
[~2025-03-02] VITALS: Ht 170.2 cm; Wt 81.6 kg
[~2025-03-02 06:49] MED LIST changes: +APIX5TAB PO; +CETI-195 PO; +CHOL20007 OR; -CHOL500014 PO; -DICL1GEL59 TOP; -NITR0.4S29 SL
[2025-03-02] MEDS: MIDAZOLAM HCL 2MG/2ML 2ml VIAL (1mg/ml) ONE (09:26)
[2025-03-02] MEDS: fentaNYL CITRATE 100 MCG/2 ML VL ONE (09:26)
[2025-03-02] MEDS: VANCOMYCIN HCL 1000 MG VL ONE (09:26)
[2025-03-02] MEDS: ceFAZolin 1GM/50ML 50 ML IV ONE (09:26)
[2025-03-02] MEDS: LIDOCAINE 2%HCL (LOCAL ANESTH.) INJ 20ML MDV ONE ×2 (09:27→10:13)
[2025-03-02] MEDS: hydrALAZINE HCL 20 MG/ML VL ONE (10:05)
[2025-03-02 10:47] VITALS: BP 170/81; PULSE 73; RESP 11; TEMP 97.8; O2SAT 93
[2025-03-02 11:01] VITALS: BP 164/84; PULSE 61; RESP 11; O2SAT 93
[2025-03-02 11:16] VITALS: BP 142/66; PULSE 60; RESP 14; O2SAT 93
--- NOTE | 2025-03-02 11:18 | DVH ---
CHEST RADIOGRAPH Indication: S/P PACEMAKER Technique: Single frontal view of the chest was obtained COMPARISON: XY CHEST TWO VIEWS ROUTINE on DOS: 02/27/25, XY CHEST TWO VIEWS ROUTINE on DOS: 10/26/24, X Y CHEST TWO VIEWS ROUTINE on DOS: 01/26/24, XY CHEST TWO VIEWS ROUTINE on DOS: 03/23/23, XY CHEST TWO V IEWS ROUTINE on DOS: 10/23/22 FINDINGS: Lines and Tubes: Median sternotomy. Left chest wall pacemaker. Lungs: Clear Pleura: No effusion. No pneumothorax. Cardiomediastinal contours: Unremarkable Bones: Unremarkable IMPRESSION: No acute disease.
[2025-03-02 11:31] VITALS: BP 134/63; PULSE 62; RESP 12; O2SAT 95
[2025-03-02 11:46] VITALS: BP 110/48; PULSE 60; RESP 16; O2SAT 96
--- NOTE | 2025-03-02 12:18 | DVHDS ---
DATE OF DISCHARGE: 03/02/2025 DISCHARGE DIAGNOSES: * Paroxysmal atrial fibrillation. * Sick sinus syndrome. * Near syncopal episode. * Now underwent successful dual-chamber permanent pacemaker implantation. HOSPITAL COURSE: The patient is clinically stable. May be discharged home. Follow up with me in one week. Stable at the time of discharge. ACTIVITY: As instructed. DIET: 2 gram sodium diet. Cheng Segal MD SA/DOMO TID: [id number] RECEIPT: [id number]
--- NOTE | 2025-03-02 12:22 | DVHHP ---
ADMIT DATE: 03/02/2025 HISTORY OF PRESENT ILLNESS: The patient is a 70-year-old with history of sick sinus syndrome, marked bradycardia, near syncopal episode, now to undergo dual-chamber permanent pacemaker implantation. PERTINENT MEDICAL HISTORY: Significant for: * Hypertension. * Hyperlipidemia. * History of coronary artery disease. History of sick sinus syndrome, marked bradycardia with pauses greater than 1.5 milliseconds to 2.5 milliseconds. This was documented by telemonitoring. The patient is now to undergo the above-mentioned procedure. He denies any fever, chills, melena, hematochezia, hematemesis, hemoptysis. No history of CVA. No history of seizure disorder. No history of any bleeding diathesis. No hematemesis, hemoptysis, hematuria, melena, or hematochezia. Denies any recent trauma. No history of any CA. PHYSICAL EXAMINATION: VITAL SIGNS: Blood pressure is 134/80, pulse 50 and regular, O2 saturation 98% on room air. HEENT: Pupils are reactive. Funduscopic exam, no papilledema, no AV nicking. No exudates noted. Sclerae anicteric. Extraocular muscles are intact. Tympanic membranes are negative. Oral mucosa moist. Posterior pharynx without any exudate. NECK: No JVD appreciated. Carotid pulses are 2+ and symmetrical. No cervical adenopathy. No supraclavicular adenopathy. PULMONARY: Clear to auscultation and tympanic to percussion. No wheezing. No egophony. No rhonchi noted. CARDIOVASCULAR: Regular rate. PMI is not displaced. ABDOMEN: Soft, nontender. Normal bowel sounds. Stool guaiac negative. No epigastric tenderness. No CVA tenderness. NEUROLOGIC: The patient is intact. DTRs are 2+ and symmetrical. Cranial nerves 2-12 are within normal limits. EXTREMITIES: Distal pulses are intact as well. The patient's EKG shows sinus rhythm, sinus bradycardia, but he has paroxysmal atrial fibrillation as well as slow ventricular response and therefore, we are not able to treat because of the fact that the patient gets markedly bradycardia with any treatment for his atrial fibrillation. The patient is now to undergo dual-chamber permanent pacemaker implantation. Further recommendations after the permanent pacemaker. Cheng Segal MD SA/INDY TID: [id number] RECEIPT: [id number]
--- NOTE | 2025-03-02 12:46 | DVHOP ---
DATE OF SURGERY: 03/02/2025 PROCEDURES PERFORMED: * Dual chamber permanent pacemaker. * Conscious sedation. * Venography. PROCEDURE: The patient was prepped and draped under sterile condition. A 1% Xylocaine was used to anesthetize the left subclavicular region. Using a Cook needle, left subclavian vein was engaged with Seldinger technique, a guidewire was appropriately positioned. Using a 10 blade, a linear incision was made. Using blunt dissection, electrocautery pocket was then dissected out. Using a 9-Prydeinig peel-away sheath, right ventricular active fixation lead was then appropriately positioned, threshold parameters obtained. Lead was secured to the chest pop using 0 Ethibond. Similarly, using a 7-Prydeinig peel-away sheath, right atrial active fixation lead then appropriately positioned. Threshold parameters obtained. Lead was secured to the chest wall using 0 Ethibond. Generator was implanted. Pocket was irrigated using vancomycin saline solution. Pocket was closed using 3-0 Monoderm subcutaneous sutures followed by 3-0 Monoderm subcuticular sutures. There were no complications. The patient tolerated the procedure well. RESULTS: The patient had implantation of Biotronik Amvia Edge DR-T, model number 890159, serial number [id number]. Atrial lead is Solia S45, model number 368911, serial number [id number]. Ventricular lead is Solia S53, model number 065745, serial number [id number]. Threshold parameters atrium; P wave amplitude of 3.0 millivolts, threshold of 1.2 volts at 0.4 milliseconds pulse duration. Right ventricular lead; R wave amplitude of 9.1 millivolts, threshold of 1.1 volts at 0.4 milliseconds pulse duration. CONCLUSION: The patient has successful implantation of dual chamber permanent pacemaker Biotronik MRI compatible system. Cheng Segal MD SA/FRIDA TID: [id number] RECEIPT: [id number]
--- NOTE | 2025-03-03 07:29 | ECG ---
[facility] Test Date: 2025-03-02 Test Time: 10:54:43 Pat Name: ROSEANNE GREGG Department: Room: Gender: Manager [employer]: JAMES : 1955 Requested By: YOSHI WALSH Order Number: [id number] Reading MD: Wm Lowery Measurements Intervals [place] Rate: 61 P: 0 ME: 224 QRS: 14 QRSD: 120 T: 71 QT: 474 QTc: 477 Interpretive Statements Electronic atrial pacemaker Inferior infarct , age undetermined Electronically Signed On 03-06-2025 18:17:54 PDT by Wm Lowery Please click the below link to view image of tracing.
== END 2025-03-02 12:15 | disposition home or self-care (01) ==
LOC: CATH 06:49
PROVIDERS: ATTEND Internal Medicine Cardiovascular Disease
DX: I44.30 Unspecified atrioventricular block (principal); I49.5 Sick sinus syndrome; I10 Essential (primary) hypertension; E78.5 Hyperlipidemia, unspecified; Z95.5 Presence of coronary angioplasty implant and graft; Z87.891 Personal history of nicotine dependence; Z83.3 Family history of diabetes mellitus; Z79.82 Long term (current) use of aspirin; Z79.84 Long term (current) use of oral hypoglycemic drugs; Z79.899 Other long term (current) drug therapy; Z95.1 Presence of aortocoronary bypass graft; Z88.8 Allergy status to other drugs, medicaments and biological substances
CPT/HCPCS: 33208; 71045; 93005; C1785; J0360; J0690; J2250; J3010; J3373; 36415; 80048; 85025; 85610; 85730; 99152; 99153

== ENCOUNTER 2025-04-06 15:00 | Outpatient (CLI) | payer MEDICARE, OTHER ==
--- NOTE | 2025-04-11 10:29 | DVHSR ---
APPROVED REPORT EXAM: Two-dimensional and M-mode echocardiogram with Doppler and color Doppler. DIMENSIONS LVDd5.0 (3.8-5.7cm)LA (2D)4.0 (1.9-4.0cm)Aortic Root3.8 (2.0-3.7cm) LVDs3.7 (2.5-4.0cm)LA (MM) (1.9-4.0cm)Aortic Cusp Exc1.4 (1.5-2.0cm) EF (%) 50.0 (55-70%)Rt. Atrium3.7 (1.9-4.0cm)Asc. Aorta cm IVSd1.1 (0.7-1.1cm)RV (D) (1.8-2.4cm) PWd1.1 (0.7-1.1cm) Mitral Valve MitralMitral Stenosis E wave0.80m/sMV Mean GR.mmHg A wave0.70m/sMV Peak GR.mmHg E/A ratio1.12D MVAcm2 Aortic Valve Aortic ValveAortic Stenosis V10.70m/Lili Mean GR.4mmHg V21.30m/Lili Peak GR.8mmHg LVOT Diameter2.4 (1.8-2.4cm)Doppler AVA2.43cm2 Pulmonic Valve V20.80m/s LEFT VENTRICLE The left ventricle is normal size. The left ventricle is normal in structure and function. The Ejection Fraction is within normal limits. RIGHT VENTRICLE The right ventricle is normal size. ATRIA The left atrial size is normal. The right atrium size is normal. The interatrial septum is intact with no evidence for an atrial septal defect. MITRAL VALVE The mitral valve is normal in structure and function. Mitral regurgitation is moderate. PULMONIC VALVE The pulmonic valve is not well visualized. TRICUSPID VALVE The tricuspid valve is grossly normal. There is mild tricuspid regurgitation. AORTIC VALVE The aortic valve is calcificed but appears to open well. No aortic regurgitation is present. GREAT VESSELS The aortic root is dilated. PERICARDIAL EFFUSION There is no pericardial effusion. Conclusion EF 50% MILD MR MILD AV CALCIFICATION WITH ADEQAUTE CUSP EXCURSION
== END 2025-04-06 17:00 | disposition home or self-care (01) ==
LOC: Rad HDHVI 15:00
PROVIDERS: ATTEND Internal Medicine Cardiovascular Disease
DX: I08.3 Combined rheumatic disorders of mitral, aortic and tricuspid valves (principal); I11.9 Hypertensive heart disease without heart failure; I48.0 Paroxysmal atrial fibrillation
CPT/HCPCS: 93306